=== PATIENT | female | born 1945 | race African-American/Black ===

== ENCOUNTER 2016-09-15 07:12 | Emergency (ER) | payer MEDICARE, OTHER ==
--- NOTE | 2016-09-15 07:41 | ER Document Report ---
ED General - General Chief Complaint: Facial Swelling Stated Complaint: FACIAL SWELLING Time seen by provider: 07:41 Mode of Arrival: Ambulatory Information source: Patient Notes: 71 yo female awoke this am with some itching and swelling to left half of lower and upper lip and into the cheek. Wears dentures. No gum pain. No fever or chills. Takes lisinopril for 10 years and an experimental GI drug for IBS since December. (dr. solitario) TRAVEL OUTSIDE OF THE [place] IN LAST 30 DAYS: No - Related Data Allergies/Adverse Reactions: Penicillins Allergy (Verified 09/15/16 07:16) Sulfa (Sulfonamide Antibiotics) Allergy (Verified 09/15/16 07:16) Past Medical History - General Information source: Patient - Social History Smoking Status: Never Smoker Chew tobacco use (# tins/day): No Frequency of alcohol use: Occasional Drug Abuse: None Family History: DM, Hypertension Patient has suicidal ideation: No Patient has homicidal ideation: No - Past Medical History Cardiac Medical History: Reports: Hx Hypertension GI Medical History: Reports: Hx Diverticulitis Musculoskeltal Medical History: Reports Hx Arthritis Past Surgical History: Reports: Hx Appendectomy - "possibly", Hx Breast Surgery - bilat biopsy, Hx Hysterectomy, Hx Orthopedic Surgery - R knee, right ankle - Immunizations Immunizations up to date: Yes Hx Diphtheria, Pertussis, Tetanus Vaccination: Yes Hx Pneumococcal Vaccination: 08/29/00 Review of Systems - Review of Systems Constitutional: No symptoms reported EENT: See HPI Cardiovascular: No symptoms reported Respiratory: No symptoms reported Gastrointestinal: No symptoms reported Genitourinary: No symptoms reported Female Genitourinary: No symptoms reported Musculoskeletal: No symptoms reported Skin: No symptoms reported Hematologic/Lymphatic: No symptoms reported Neurological/Psychological: No symptoms reported Physical Exam - Vital signs Vitals: Temp Pulse Resp BP Pulse Ox 97.9 F 84 17 166/79 H 97 09/15/16 07:17 09/15/16 07:17 09/15/16 07:17 09/15/16 07:17 09/15/16 07:17 Interpretation: Normal - General General appearance: Appears well, Alert In distress: None - HEENT Head: Normocephalic, Atraumatic Eyes: Normal Conjunctiva: Normal Pupils: PERRL Mouth/Lips: Angioedema - left 1/2 of upper and lower lips Mucous membranes: Normal Pharynx: Normal, Other - airway wide open. No: Uvular edema - Respiratory Respiratory status: No respiratory distress Chest status: Nontender Breath sounds: Normal Chest palpation: Normal - Cardiovascular Rhythm: Regular Heart sounds: Normal auscultation Murmur: No - Abdominal Inspection: Normal Distension: No distension Bowel sounds: Normal Tenderness: Nontender Organomegaly: No organomegaly - Back Back: Normal, Nontender - Extremities General upper extremity: Normal inspection, Nontender, Normal color, Normal ROM , Normal temperature General lower extremity: Normal inspection, Nontender, Normal color, Normal ROM , Normal temperature, Normal weight bearing. No: Dena's sign - Neurological Neuro grossly intact: Yes Cognition: Normal Orientation: AAOx4 [place] Coma Scale Eye Opening: Spontaneous [place] Coma Scale Verbal: Oriented Mery Coma Scale Motor: Obeys Commands [place] Coma Scale Total: 15 Speech: Normal Motor strength normal: LUE, RUE, LLE, RLE Sensory: Normal - Psychological Associated symptoms: Normal affect, Normal mood - Skin Skin Temperature: Warm Skin Moisture: Dry Skin Color: Normal Course - Re-evaluation Re-evalutation: 09/15/16 07:[address] Robison per [facility] guidelines re: tx of this pt. Watch the pt. until 9 am, if it is not worse, can go home and since has to drive take benadryl at home. 09/15/16 09:10 no increase in swelling. I consulted with dr. solitario about this as reqeusted by the pt because she is taking experimental IBS med. He states it's OK for her to take benadryl, pepcid and prednisone. 09/15/16 09:56 Stable no increase in swelling and will be typing the patient's discharge and discussed this disposition with Dr. Gao 09/15/16 10:03 I advised patient that she needs to see Dr. Solitario and Dr. Canas today to get started on a different blood pressure medication. Also to take the Benadryl when she gets home. - Vital Signs Vital signs: Temp Pulse Resp BP Pulse Ox 97.9 F 74 16 143/89 H 99 09/15/16 10:10 09/15/16 10:10 09/15/16 10:10 09/15/16 10:10 09/15/16 10:10 Discharge - Discharge Clinical Impression: left side lip andioedema Condition: Good Disposition: HOME, SELF-CARE Instructions: Angioedema ([facility]), Use of Diphenhydramine, Acid-Suppressing Medication ([facility]), Steroid Medication Additional Instructions: Stop by Dr. Solitario office to evaluate you stop the lisinopril Take the new medication prescribed. over the counter Benadryl See Dr. Canas today related to the lisinopril that you take for blood pressure which can cause angioedema. He may have to start you on another medication Return to the ER if any increased swelling, trouble breathing, wheezing, or concerns Prescriptions: Famotidine [Pepcid 20 mg Tablet] 20 mg PO BID #14 tablet Prednisone [Deltasone 10 mg Tablet] 10 mg PO ASDIR PRN #21 tablet PRN Reason: Referrals: JAMEE CANAS MD [Primary Care Provider] - 09/15/16 EDE SOLITARIO MD [ACTIVE STAFF] - 09/15/16
[2016-09-15] MEDS ORDERED: PREDNISONE 20 MG TABLET PO ONE (07:49)
[2016-09-15] MEDS ORDERED: FAMOTIDINE 20 MG TABLET PO ONE (07:49)
[2016-09-15 10:12] VITALS: BP 143/89
== END 2016-09-15 10:10 | disposition home or self-care (01) ==
LOC: ER 07:12
DX: T78.3XXA Angioneurotic edema, initial encounter (principal); X58.XXXA Exposure to other specified factors, initial encounter; K58.9 Irritable bowel syndrome, unspecified; I10 Essential (primary) hypertension; Z79.899 Other long term (current) drug therapy; Z88.0 Allergy status to penicillin; Z88.2 Allergy status to sulfonamides
CPT/HCPCS: 99283; A9270 ×2; J7512

== ENCOUNTER → 2016-12-16 | Outpatient (CLI) | payer MEDICARE, OTHER | LOC: RAD 07:51 | PROVIDERS: ATTEND Internal Medicine Gastroenterology | DX: R10.13 Epigastric pain (principal) | CPT/HCPCS: 76700 ==

== ENCOUNTER → 2017-04-14 | Outpatient (CLI) | payer MEDICARE, OTHER ==
--- NOTE | 2017-04-15 17:44 | WOMENS IMAGING REPORT ---
EXAM DESCRIPTION: BONE DENSITY HIP/SPINE COMPLETED DATE/TIME: 04/14/2017 10:26 am REASON FOR STUDY: GENERAL ADULT MEDICAL EXAM WITHOUT ABNORMAL FINDINGS; Z78.0 Z78.0 ASYMPTOMATIC ME NOPAUSAL STATE COMPARISON: 2004, 2011 TECHNIQUE: Dual-Energy X-ray Absorptiometry (DEXA) of the AP Spine and Hip. LIMITATIONS: None. FINDINGS: LUMBAR SPINE: The bone mineral density (BMD) measured from L1-L4 in the AP projection correlates with a T-score of -1.1, which is osteopenic as defined by the World Health Organization. This is stable compared to and 2011 HIP: The bone mineral density (BMD) measured in the left total hip correlates with a T-score of -2.0, whic h is osteopenic as defined by the World Health Organization. This represents a 5% decline in bone de nsity since 2011 IMPRESSION: 1. LUMBAR SPINE: Osteopenic 2. HIP: Osteopenic COMMENT: The World Health Organization defines low BMD as follows: T-score: Normal: Greater than -1.0 Osteopenia: Between -1.0 and -2.5 Osteoporosis: Less than -2.5 without fractures Established osteoporosis: Less than -2.5 with fractures In general, you may wish to consider: Diagnosis Treatment Follow-up DEXA Normal BMD Prevention 2-3 years Osteopenia Prevention/Therapy 1-2 years Osteoporosis Therapy Yearly TECHNICAL DOCUMENTATION: JOB ID: [id number] [employer]- All Rights Reserved
== END ==
LOC: WI 10:24
PROVIDERS: ATTEND Internal Medicine
DX: Z78.0 Asymptomatic menopausal state (principal)
CPT/HCPCS: 77080

== ENCOUNTER 2017-07-10 00:23 | Emergency (ER) | payer MEDICARE, OTHER ==
[2017-07-10 00:31] VITALS: BP 122/82
--- NOTE | 2017-07-10 01:30 | ER Document Report ---
ED General - General Chief Complaint: Facial Swelling Stated Complaint: FACE SWELLING Time Seen by Provider: 07/10/17 01:18 Notes: Patient is a 72-year-old female who presents with complaint of facial swelling. She says that she was started on a new blood pressure medication, hydralazine. She is was prescribed to her by primary care doctor on but she did not take the first dose until Tuesday. She says she took 1 dose Tuesday and 1 dose Tuesday. She says she is since started developing some facial swelling of her left. She says she feels tightness and swelling below her left eye anterior cheek and down into her neck. No chest pain. No shortness of breath. She says she had the exact same symptoms when she took lisinopril and that is why the lisinopril was started. She denies any tongue swelling. No difficulty breathing. No difficulty swallowing. No difficulty with facial movements. No other complaints at this time. TRAVEL OUTSIDE OF THE [place] IN LAST 30 DAYS: No - Related Data Allergies/Adverse Reactions: Penicillins Allergy (Verified 07/10/17 00:31) Sulfa (Sulfonamide Antibiotics) Allergy (Verified 07/10/17 00:31) Past Medical History - Social History Smoking Status: Never Smoker Frequency of alcohol use: None Drug Abuse: None Family History: DM, Hypertension Patient has suicidal ideation: No Patient has homicidal ideation: No - Past Medical History Cardiac Medical History: Reports: Hx Hypertension Renal/ Medical History: Denies: Hx Peritoneal Dialysis GI Medical History: Reports: Hx Diverticulitis Musculoskeltal Medical History: Reports Hx Arthritis Past Surgical History: Reports: Hx Appendectomy - "possibly", Hx Breast Surgery - bilat biopsy, Hx Hysterectomy, Hx Orthopedic Surgery - R knee, right ankle - Immunizations Immunizations up to date: Yes Hx Diphtheria, Pertussis, Tetanus Vaccination: Yes Hx Pneumococcal Vaccination: 08/29/00 Review of Systems - Review of Systems Notes: My Normal Review Basic REVIEW OF SYSTEMS: CONSTITUTIONAL : Denies fever, chills, or sweats. Denies recent illness. EENT: Facial swelling CARDIOVASCULAR: Denies chest pain. RESPIRATORY: Denies cough, cold, or chest congestion. Denies shortness of breath, difficulty breathing, or wheezing. MUSCULOSKELETAL: Denies neck or back pain or joint pain or swelling. SKIN: Denies rash or skin lesions. NEUROLOGICAL: Denies altered mental status or loss of consciousness. Denies headache. Denies weakness or paralysis or loss of use of either side. Denies problems with gait or speech. Denies sensory or motor loss. ALL OTHER SYSTEMS REVIEWED AND NEGATIVE. Physical Exam - Vital signs Vitals: Temp Pulse Resp BP Pulse Ox 98.6 F 74 14 122/82 98 07/10/17 00:31 07/10/17 00:31 07/10/17 00:31 07/10/17 00:31 07/10/17 00:31 - Notes Notes: General Appearance: Well nourished, alert, cooperative, no acute distress, no obvious discomfort. Well appearing. Vitals: reviewed, See vital signs table. Head: Patient has very minimally visible swelling along the left cheek left side of face. Redness. No warmth to palpation. Mild soreness to palpation of this area. Eyes: PERRL, EOMI, Conjuctiva clear Mouth: No decreasd moisture Throat: No tonsillar inflammation, No airway obstruction, No lymphadenopathy Extremities: strength 5/5 in all extremities, good pulses in all extremities, no swelling or tenderness in the extremities, no edema. Skin: warm, dry, appropriate color, no rash Neuro: speech clear, oriented x 3, normal affect, responds appropriately to questions. Renal nerves II through XII are intact. Distal sensation intact. Normal gait. Normal strength in all 4 extremities. Course - Re-evaluation Re-evalutation: 07/10/17 01:35 What swelling the patient has left-sided face is very minimal. I do look very hard to be able to notice it. This time the patient does not need prednisone. I told her she can take Benadryl for any itching or sensation of swelling. She has no signs of airway compromise. She looks well. I encourage her to hold off on the Hydralazine until she follows up with Dr. Damon. I encouraged her follow-up Dr. Damon on Tuesday. Encouraged her return to ER if she has difficulty breathing, difficulty swallowing, increased facial swelling, or she feels unwell. Patient agrees with plan will be discharged home. Dictation of this chart was performed using voice recognition software; therefore, there may be some unintended grammatical errors. - Vital Signs Vital signs: Temp Pulse Resp BP Pulse Ox 98.6 F 74 14 122/82 98 07/10/17 00:31 07/10/17 00:31 07/10/17 00:31 07/10/17 00:31 07/10/17 00:31 Discharge - Discharge Clinical Impression: Sensation of pressure in face Condition: Good Disposition: HOME, SELF-CARE Additional Instructions: Please take 25 mg Benadryl every 6 hours as needed for swelling or pressure in the face. His hold the hydralazine medication. Please follow-up with Dr. Damon on Tuesday morning for reevaluation and possible prescription for different kind of blood pressure medication if needed. These return to ER immediately if you have visual worsening swelling, difficulty breathing, difficulty swallowing, tongue swelling, weakness in the face, severe headache, or feel unwell.
== END 2017-07-10 01:38 | disposition home or self-care (01) ==
LOC: ER 00:23
DX: R22.0 Localized swelling, mass and lump, head (principal); I10 Essential (primary) hypertension; Z90.710 Acquired absence of both cervix and uterus; Z88.0 Allergy status to penicillin; Z88.2 Allergy status to sulfonamides
CPT/HCPCS: 99283

== ENCOUNTER → 2017-08-16 | Outpatient (CLI) | payer MEDICARE, OTHER ==
--- NOTE | 2017-08-16 11:16 | WOMENS IMAGING REPORT ---
EXAM DESCRIPTION: BILAT SCREENING MAMMO W/CAD COMPLETED DATE/TIME: 08/16/2017 10:55 am REASON FOR STUDY: SCREENING MAMMO Z12.31 ENCNTR SCREEN MAMMOGRAM FOR MALIGNANT NEOPLASM OF YAKELIN COMPARISON: 2011 to 2014 TECHNIQUE: Standard craniocaudal and mediolateral oblique views of each breast recorded using digita l acquisition. LIMITATIONS: None. FINDINGS: RIGHT BREAST MASSES: No suspicious masses. CALCIFICATIONS: No new or suspicious calcifications. ARCHITECTURAL DISTORTION: None. DEVELOPING DENSITY: Developing density in the central breast 5 cm from nipple seen only on the CC vie w ASYMMETRY: None noted. OTHER: No other significant findings. LEFT BREAST MASSES: No suspicious masses. CALCIFICATIONS: No new or suspicious calcifications. ARCHITECTURAL DISTORTION: None. DEVELOPING DENSITY: None. ASYMMETRY: None noted. OTHER: No other significant findings. Read with the assistance of CAD. .[facility] - R2 Cenova Version 1.3 .[facility] Imaging - R2 Cenova Version 1.3 .[facility] Imaging - R2 Cenova Version 2.4 .[facility] [place] R2 Cenova Version 2.4 .[facility] - R2 Senior Scheduler Version 9.2 IMPRESSION: Developing density in the right breast BREAST DENSITY: b. There are scattered areas of fibroglandular density. BIRAD: 0 Incomplete: Needs Additional Imaging Evaluation and/or prior Mammograms for Comparison. RECOMMENDATION: RECOMMENDED FOLLOW-UP: Spot compression with ultrasound if indicated. The patient will be contacted for additional imaging. COMMENT: The patient has been notified of the results by letter per SA requirements. Additional no tification policies are in place for contacting patient with suspicious or incomplete findings. Quality ID #[id number]: The [employer] recommends an annual screening mammogram for women aged 40 years or over. This facility utilizes a reminder system to ensure that all patients receive reminder letters, and/or direct phone calls for appointments. This includes reminders for routine scr eening mammograms, diagnostic mammograms, or other Breast Imaging Interventions when appropriate. Th is patient will be placed in the appropriate reminder system. The [employer] (ACR) has developed recommendations for screening MRI of the breast s in certain patient populations, to be used in conjunction with mammography. Breast MRI surveillanc e may be appropriate for women with more than 20% lifetime risk of developing breast cancer as deter mined by genetic testing, significant family history of the disease, or history of mantle radiation f or Hodgkins Disease. ACR Practice Guidelines 2008. TECHNICAL DOCUMENTATION: FINDING NUMBER: (1) ASSESSMENT: (1) JOB ID: [id number] [employer].- All Rights Reserved
== END ==
LOC: WI 10:20
PROVIDERS: ATTEND Internal Medicine
DX: Z12.31 Encounter for screening mammogram for malignant neoplasm of breast (principal)
CPT/HCPCS: 77067; G0202

== ENCOUNTER → 2017-09-07 | Outpatient (CLI) | payer MEDICARE, OTHER ==
--- NOTE | 2017-09-07 13:42 | WOMENS IMAGING REPORT ---
EXAM DESCRIPTION: RIGHT DIAGNOSTIC MAMMO W/CAD; U/S BREAST UNILAT LIMITED COMPLETED DATE/TIME: 09/07/2017 10:58 am; 09/07/2017 1:29 pm REASON FOR STUDY: UNSPECIFIED LUMP; N63.41; MASS N63.41 UNSPECIFIED LUMP IN RIGHT BREAST, SUBAREOLA R COMPARISON: Multiple since 2008 TECHNIQUE: Cone compression craniocaudal and whole breast 90 mediolateral images of the breast suzanna rded with digital acquisition. Right breast ultrasound was also performed LIMITATIONS: None. FINDINGS: BREAST: Right MASSES: No suspicious masses. CALCIFICATIONS: No new or suspicious calcifications. ARCHITECTURAL DISTORTION: None. DEVELOPING DENSITY: None. ASYMMETRY: None noted. OTHER: No other significant findings. Read with the assistance of CAD. .[facility] - R2 Cenova Version 1.3 .[facility] Imaging - R2 Cenova Version 1.3 .[facility] Imaging - R2 Cenova Version 2.4 .[facility] - R2 Cenova Version 2.4 .[facility] - R2 Medical Device Sales Consultant Version 9.2 Right breast ultrasound: Ultrasound of the right breast 11 to 12 o'clock position was performed. No discrete cystic or solid lesions. No acoustic absorption. No focal findings. IMPRESSION: No mammographic or sonographic evidence for malignancy right breast BREAST DENSITY: b. There are scattered areas of fibroglandular density. BIRAD: 1 Negative. RECOMMENDATION: RECOMMENDED FOLLOW UP: Please continue yearly bilateral screening mammography in Jul. Please consider screening tomosynthesis SPECIFIC INTERVENTION/IMAGING/CONSULTATION RECOMMENDED:No additional intervention/ imaging/consultati on needed at this time. COMMUNICATION:Patient notified by letter COMMENT: The patient has been notified of the results by letter per SA requirements. Additional no tification policies are in place for contacting patient with suspicious or incomplete findings. Quality ID #[id number]: The [employer] recommends an annual screening mammogram for women aged 40 years or over. This facility utilizes a reminder system to ensure that all patients receive reminder letters, and/or direct phone calls for appointments. This includes reminders for routine scr eening mammograms, diagnostic mammograms, or other Breast Imaging Interventions when appropriate. Th is patient will be placed in the appropriate reminder system. The [employer] (ACR) has developed recommendations for screening MRI of the breast s in certain patient populations, to be used in conjunction with mammography. Breast MRI surveillanc e may be appropriate for women with more than 20% lifetime risk of developing breast cancer as deter mined by genetic testing, significant family history of the disease, or history of mantle radiation f or Hodgkins Disease. ACR Practice Guidelines 2008. TECHNICAL DOCUMENTATION: FINDING NUMBER: (1) ASSESSMENT: (1) JOB ID: [id number] [employer]- All Rights Reserved
--- NOTE | 2017-09-07 13:42 | WOMENS IMAGING REPORT ---
EXAM DESCRIPTION: RIGHT DIAGNOSTIC MAMMO W/CAD; U/S BREAST UNILAT LIMITED COMPLETED DATE/TIME: 09/07/2017 10:58 am; 09/07/2017 1:29 pm REASON FOR STUDY: UNSPECIFIED LUMP; N63.41; MASS N63.41 UNSPECIFIED LUMP IN RIGHT BREAST, SUBAREOLA R COMPARISON: Multiple since 2008 TECHNIQUE: Cone compression craniocaudal and whole breast 90 mediolateral images of the breast suzanna rded with digital acquisition. Right breast ultrasound was also performed LIMITATIONS: None. FINDINGS: BREAST: Right MASSES: No suspicious masses. CALCIFICATIONS: No new or suspicious calcifications. ARCHITECTURAL DISTORTION: None. DEVELOPING DENSITY: None. ASYMMETRY: None noted. OTHER: No other significant findings. Read with the assistance of CAD. .[facility] - R2 Cenova Version 1.3 .[facility] Imaging - R2 Cenova Version 1.3 .[facility] Imaging - R2 Cenova Version 2.4 .[facility] [place]2 Cenova Version 2.4 .[facility] - R2 Soap Inspector Version 9.2 Right breast ultrasound: Ultrasound of the right breast 11 to 12 o'clock position was performed. No discrete cystic or solid lesions. No acoustic absorption. No focal findings. IMPRESSION: No mammographic or sonographic evidence for malignancy right breast BREAST DENSITY: b. There are scattered areas of fibroglandular density. BIRAD: 1 Negative. RECOMMENDATION: RECOMMENDED FOLLOW UP: Please continue yearly bilateral screening mammography in Jul. Please consider screening tomosynthesis SPECIFIC INTERVENTION/IMAGING/CONSULTATION RECOMMENDED:No additional intervention/ imaging/consultati on needed at this time. COMMUNICATION:Patient notified by letter COMMENT: The patient has been notified of the results by letter per SA requirements. Additional no tification policies are in place for contacting patient with suspicious or incomplete findings. Quality ID #[id number]: The [employer] recommends an annual screening mammogram for women aged 40 years or over. This facility utilizes a reminder system to ensure that all patients receive reminder letters, and/or direct phone calls for appointments. This includes reminders for routine scr eening mammograms, diagnostic mammograms, or other Breast Imaging Interventions when appropriate. Th is patient will be placed in the appropriate reminder system. The [employer] (ACR) has developed recommendations for screening MRI of the breast s in certain patient populations, to be used in conjunction with mammography. Breast MRI surveillanc e may be appropriate for women with more than 20% lifetime risk of developing breast cancer as deter mined by genetic testing, significant family history of the disease, or history of mantle radiation f or Hodgkins Disease. ACR Practice Guidelines 2008. TECHNICAL DOCUMENTATION: FINDING NUMBER: (1) ASSESSMENT: (1) JOB ID: [id number] [employer]- All Rights Reserved
== END ==
LOC: WI 10:35
PROVIDERS: ATTEND Internal Medicine
DX: N63.41 Unspecified lump in right breast, subareolar (principal)
CPT/HCPCS: 76642

== ENCOUNTER 2018-03-30 09:37 | Emergency (ER) | payer MEDICARE ==
--- NOTE | 2018-03-30 09:56 | ER Document Report ---
ED Medical Screen (RME) - General Chief Complaint: Leg Swelling Stated Complaint: LEG/ANKLE PAIN Time Seen by Provider: 03/30/18 09:46 Mode of Arrival: Ambulatory Information source: Patient TRAVEL OUTSIDE OF THE [place] IN LAST 30 DAYS: No - HPI Patient complains to provider of: swelling and pain in both ankles Onset: Other - pt with c/o swelling and pain in both ankles, worse on the R - Related Data Allergies/Adverse Reactions: Penicillins Allergy (Verified 03/30/18 09:38) Sulfa (Sulfonamide Antibiotics) Allergy (Verified 03/30/18 09:38) hydrochlorothiazide Adverse Reaction (Verified 03/30/18 09:49) Pruritis Past Medical History - Social History Frequency of alcohol use: None Drug Abuse: None - Past Medical History Cardiac Medical History: Reports: Hx Hypertension Renal/ Medical History: Denies: Hx Peritoneal Dialysis GI Medical History: Reports: Hx Diverticulitis, Hx Gastroesophageal Reflux Disease Musculoskeltal Medical History: Reports Hx Arthritis Past Surgical History: Reports: Hx Appendectomy - "possibly", Hx Breast Surgery - bilat biopsy, Hx Hysterectomy, Hx Orthopedic Surgery - R knee, right ankle - Immunizations Immunizations up to date: Yes Hx Diphtheria, Pertussis, Tetanus Vaccination: Yes Physical Exam - Vital signs Vitals: Temp Pulse Resp BP Pulse Ox 98.2 F 66 16 169/96 H 97 03/30/18 09:42 03/30/18 09:42 03/30/18 09:42 03/30/18 09:42 03/30/18 09:42 Course - Vital Signs Vital signs: Temp Pulse Resp BP Pulse Ox 98.2 F 66 16 169/96 H 97 03/30/18 09:42 03/30/18 09:42 03/30/18 09:42 03/30/18 09:42 03/30/18 09:42 Doctor's Discharge - Discharge Referrals: JAMEE CANAS MD [Primary Care Provider] - Follow up as needed
[2018-03-30 10:52] LABS: ABSOLUTE EOSINOPHILS # (AUTO) 0.1 10^3/uL (0.0-0.6); ABSOLUTE LYMPHOCYTES (AUTO) 1.4 10^3/uL (0.5-4.7); ABSOLUTE MONOCYTES (AUTO) 0.4 10^3/uL (0.1-1.4); ABSOLUTE NEUT (AUTO) 4.3 10^3/uL (1.7-8.2); BASOPHILS % (AUTO) 0.5 % (0-2); EOSINOPHILS % (AUTO) 2.2 % (0-6); HEMATOCRIT 38.1 % (36.0-47.0); HEMOGLOBIN 12.3 g/dL (12.0-15.5); LYMPHOCYTES % (AUTO) 21.6 % (13-45); MEAN CORPUSCULAR HEMOGLOBIN 30.6 pg (27.0-33.4); MEAN CORPUSCULAR HGB CONC 32.4 g/dL (32.0-36.0); MEAN CORPUSCULAR VOLUME 95 fl (80-97); MONOCYTES % (AUTO) 7.1 % (3-13); PLATELET COUNT 321 10^3/uL (150-450); RED BLOOD COUNT 4.03 10^6/uL (3.72-5.28); RED CELL DISTRIBUTION WIDTH 13.9 % (11.5-14.0); SEGMENTED NEUTROPHILS % (AUTO) 68.6 % (42-78); TOTAL CELLS COUNTED % (AUTO) 100 %; WHITE BLOOD COUNT 6.3 10^3/uL (4.0-10.5)
[2018-03-30 11:09] LABS: ALANINE AMINOTRANSFERASE 20 U/L (9-52); ALBUMIN 4.1 g/dL (3.5-5.0); ALKALINE PHOSPHATASE 102 U/L (38-126); ANION GAP 10 (5-19); ASPARTATE AMINO TRANSFERASE 18 U/L (14-36); BILIRUBIN,DIRECT 0.2 mg/dL (0.0-0.4); BILIRUBIN,TOTAL 1.1 mg/dL (0.2-1.3); BLOOD UREA NITROGEN 20 mg/dL (7-20); CARBON DIOXIDE 30 mmol/L (22-30); CHLORIDE 109 mmol/L (98-107); GLUCOSE 99 mg/dL (75-110); POTASSIUM 3.9 mmol/L (3.6-5.0); SODIUM 148.7 mmol/L (137-145); TOTAL PROTEIN 7.7 g/dL (6.3-8.2)
--- NOTE | 2018-03-30 12:53 | ER Document Report ---
ED General - General Chief Complaint: Leg Swelling Stated Complaint: LEG/ANKLE PAIN Time Seen by Provider: 03/30/18 09:46 Mode of Arrival: Ambulatory TRAVEL OUTSIDE OF THE [place] IN LAST 30 DAYS: No - HPI Patient complains to provider of: Leg swelling bilaterally and pain behind the right knee Onset: Other - 72-year-old female has a history of edema in the bilateral lower extremities. It is intermittent and worse when she keeps her legs lower than her waist for extended period of time. She has been seen for this in the past and does wear compression stockings to help with it, she notes that the swelling seems to be worse than usual of late and has not been going away as readily, she had taken Lasix in the past but had stopped because it caused swelling elsewhere. She presented because she was having pain in her right lower extremity today associated with the swelling for which she has been seen in the past without any obvious cause being identified nothing seemed to help with it nothing seems to make it worse other than touching it. She denies any fevers or chills abdominal pain diarrhea constipation dysuria shortness of breath chest pain lightheadedness or other symptoms. - Related Data Allergies/Adverse Reactions: Penicillins Allergy (Verified 03/30/18 09:38) Sulfa (Sulfonamide Antibiotics) Allergy (Verified 03/30/18 09:38) hydrochlorothiazide Adverse Reaction (Verified 03/30/18 09:49) Pruritis Past Medical History - General Information source: Patient - Social History Smoking Status: Never Smoker Frequency of alcohol use: None Drug Abuse: None Family History: DM, Hypertension Patient has suicidal ideation: No Patient has homicidal ideation: No - Medical History Medical History: Other - History of edema bilaterally - Past Medical History Cardiac Medical History: Reports: Hx Hypertension Renal/ Medical History: Denies: Hx Peritoneal Dialysis GI Medical History: Reports: Hx Diverticulitis, Hx Gastroesophageal Reflux Disease Musculoskeletal Medical History: Reports Hx Arthritis Past Surgical History: Reports: Hx Appendectomy - "possibly", Hx Breast Surgery - bilat biopsy, Hx Hysterectomy, Hx Orthopedic Surgery - R knee, right ankle - Immunizations Immunizations up to date: Yes Hx Diphtheria, Pertussis, Tetanus Vaccination: Yes Hx Pneumococcal Vaccination: 08/29/00 Review of Systems - Review of Systems Musculoskeletal: Leg swelling -: Yes All other systems reviewed and negative Physical Exam - Vital signs Vitals: Temp Pulse Resp BP Pulse Ox 98.2 F 66 16 169/96 H 97 03/30/18 09:42 03/30/18 09:42 03/30/18 09:42 03/30/18 09:42 03/30/18 09:42 - General General appearance: Appears well - HEENT Head: Normocephalic Eyes: Normal - Respiratory Respiratory status: No respiratory distress Chest status: Nontender Breath sounds: Normal - Cardiovascular Rhythm: Regular Heart sounds: Normal auscultation Murmur: No - Abdominal Inspection: Normal Distension: No distension Bowel sounds: Normal - Back Back: Normal - Extremities General upper extremity: Normal inspection General lower extremity: Other - This patient has +2 pitting edema in the bilateral lower extremities from the level of the knee to the ankle without any obvious sloughing boli erythema or warmth There is a strong DP pulse bilaterally , there is warmth in the feet, there is brisk capillary refill in all 5 digits is normal sensation in the webspace the toes Normal range of motion of the ankles knees and hips - Neurological Neuro grossly intact: Yes Cognition: Normal Orientation: AAOx4 Mery Coma Scale Eye Opening: Spontaneous Mery Coma Scale Verbal: Oriented Course - Re-evaluation Re-evalutation: 03/30/18 16:23 72-year-old female presented for evaluation of bilateral swelling of lower extremities with pain in the right leg worse than usual, she does wear compression hose. She was evaluated through the pit, a order was placed for ultrasounds of the lower extremities. Basic labs were ordered as well. In addition I added on a proBNP for evaluation of potential underlying heart failure. Patient had a negative Doppler ultrasound of the bilateral lower extremities which did not demonstrate any obvious clot. She did have some pain in the right lower extremity associated with what appears to be a small knot there is no appreciable fluctuance or fluid collection there that is amenable to drainage. Given that this patient is swollen with edema that seems to be dependent had some concern for heart failure however her lungs are clear she did not exhibit other signs of heart failure at this time and her proBNP was negative. Spoke with patient at length about the risks and benefits of potentially adding a diuretic to her regimen, I deferred adding a diuretic at this time given her age and the potential to cause more harm. She is in agreement at this time, she will wear her compression stockings and try and sleep with her legs in a vertical position and she will also follow-up with her primary physician regards to possible adjustment of her blood pressure medications. Her blood pressure was slightly elevated prior to leaving the emergency department she was instructed to take her clonidine upon her departure. - Vital Signs Vital signs: Temp Pulse Resp BP Pulse Ox 97.2 F 82 16 170/77 H 99 03/30/18 13:26 03/30/18 13:26 03/30/18 13:26 03/30/18 13:26 03/30/18 13:26 - Laboratory Result Diagrams: 03/30/18 10:25 03/30/18 10:25 Laboratory results interpreted by me: 03/30/18 10:25 Sodium 148.7 H Chloride 109 H Est GFR (Non-Af Amer) 53 L Discharge - Discharge Clinical Impression: Edema Qualifiers: Edema type: unspecified Qualified Code(s): R60.9 - Edema, unspecified Leg pain Qualifiers: Laterality: bilateral Qualified Code(s): M79.604 - Pain in right leg Condition: Stable Disposition: HOME, SELF-CARE Instructions: Dependent Edema ([facility]) Additional Instructions: you were seen today in the emergency department for your leg swelling. You had an evaluation including blood tests as well as an ultrasound of the veins of your legs. There was no obvious abscess identified, no clots identified. The swelling in your legs is likely a result of edema which is a result of your legs being lower than your heart for any given period of time. you should try to sleep with your legs propped up and continue to use compression stockings. You need to apply topical cream to help with the pain in your legs as necessary. If you begin to have fevers or chills and may represent a change and possible infection and he should be seen by a doctor. you should see her primary care doctor this week for further investigation of a possible water pill. Prescriptions: Lidocaine HCl [Xylocaine 5% Ointment 35.44 gm] 35.44 applic TP BID #2 tube Forms: Elevated Blood Pressure
[2018-03-30 13:27] VITALS: BP 170/77
--- NOTE | 2018-03-30 15:50 | XCELERA REPORT ---
[address] [address] Lower Extremity Venous Evaluation Name: ARGENTINA LA Age: 72 yrs Gender: Female : 1945 Patient Status: Emergency Patient Location: ER Study Date: 03/30/2018 10:48 AM Procedure: Color flow and duplex imaging bilaterally of the veins of the lower extremities as well as the Common Femoral veins. Reason For Study: swelling and pain Ordering Physician: ISAAK PEREIRA Performed By: Yakelin La Right Sided Venous Evaluation Normal vessel filling wall to wall, compression and augmentation as well as Colour flow down to the infrageniculate veins. Left Sided Venous Evaluation Normal vessel filling wall to wall, compression and augmentation as well as Colour flow down to the infrageniculate veins. Interpretation Summary No duplex evidence of DVT or obstruction in the bilateral lower extremities. : ISAAK PEREIRA > Rhett Braden
== END 2018-03-30 13:27 | disposition home or self-care (01) ==
LOC: ER 09:37
DX: R60.0 Localized edema (principal); M79.604 Pain in right leg; I10 Essential (primary) hypertension; Z88.0 Allergy status to penicillin; Z88.2 Allergy status to sulfonamides
CPT/HCPCS: 36415; 80053; 83880; 85025; 93970; 99284

== ENCOUNTER → 2018-06-27 | Outpatient (CLI) | payer MEDICARE, OTHER ==
--- NOTE | 2018-06-27 15:55 | RADIOLOGY REPORT (SQ) ---
EXAM DESCRIPTION: VENOUS BILATERAL LOWER COMPLETED DATE/TIME: 06/27/2018 3:46 pm REASON FOR STUDY: LYMPHEDEMA I89.0 LYMPHEDEMA, NOT ELSEWHERE CLASSIFIED COMPARISON: None. TECHNIQUE: Dynamic and static cardenas scale and color images acquired of both lower extremity venous sy stems. Selected spectral images acquired with additional compression and augmentation maneuvers. Imag es stored on PACS. LIMITATIONS: None. FINDINGS: RIGHT LEG COMMON FEMORAL AND FEMORAL: Normal phasicity, compression and augmentation. No visualized echogenic m aterial on cardenas scale. No defects on color images. POPLITEAL: Normal compression and augmentation. No visualized echogenic material on cardenas scale. No de fects on color images. CALF VESSELS: Normal compression and augmentation. No visualized echogenic material on cardenas scale. No defects on color image. GSV AND SSV: Normal compression. No visualized echogenic material on cardenas scale. No defects on color images. ANY DEEP VENOUS INSUFFICIENCY: No. ANY EVIDENCE OF POPLITEAL CYST: No. OTHER: No other significant finding. LEFT LEG COMMON FEMORAL AND FEMORAL: Normal phasicity, compression and augmentation. No visualized echogenic m aterial on cardenas scale. No defects on color images. POPLITEAL: Normal compression and augmentation. No visualized echogenic material on cardenas scale. No de fects on color images. CALF VESSELS: Normal compression and augmentation. No visualized echogenic material on cardenas scale. No defects on color images. GSV AND SSV: Normal compression. No visualized echogenic material on cardenas scale. No defects on color images. ANY DEEP VENOUS INSUFFICIENCY: No. ANY EVIDENCE POPLITEAL CYST: No. OTHER: No other significant finding. IMPRESSION: NO EVIDENCE DVT OR SVT IN EITHER LEG. TECHNICAL DOCUMENTATION: JOB ID: [id number] [employer]- All Rights Reserved Reading location - IP/workstation name: [email or web address]
== END ==
LOC: SP 15:28
PROVIDERS: ATTEND Surgery
DX: I89.0 Lymphedema, not elsewhere classified (principal)
CPT/HCPCS: 93970

== ENCOUNTER → 2018-10-03 | Outpatient (CLI) | payer MEDICARE, OTHER | LOC: WI 10:29 | PROVIDERS: ATTEND Physician Assistant | DX: Z12.31 Encounter for screening mammogram for malignant neoplasm of breast (principal) | CPT/HCPCS: 77067 ==

== ENCOUNTER → 2018-10-31 | Outpatient (CLI) | payer MEDICARE, OTHER ==
--- NOTE | 2018-10-31 15:46 | WOMENS IMAGING REPORT ---
EXAM DESCRIPTION: LEFT DIAGNOSTIC MAMMO W/CAD COMPLETED DATE/TIME: 10/31/2018 10:58 am REASON FOR STUDY: R92.2 INCONCLUSIVE MAMMOGRAM R92.2 INCONCLUSIVE MAMMOGRAM COMPARISON: Multiple since 2008 TECHNIQUE: Cone compression craniocaudal and mediolateral oblique images of the breast recorded with digital acquisition. Left breast exaggerated craniocaudad and 90 mediolateral view LIMITATIONS: None. FINDINGS: BREAST LATERALITY: Left MASSES: No suspicious masses. CALCIFICATIONS: No new or suspicious calcifications. ARCHITECTURAL DISTORTION: None. DEVELOPING DENSITY: None. ASYMMETRY: None noted. OTHER: No other significant findings. Read with the assistance of CAD. .[facility] - R2 Cenova Version 1.3 .[facility] Imaging - R2 Cenova Version 2.1 .[facility] Imaging - R2 Cenova Version 2.4 .[facility] - R2 Cenova Version 2.4 .ON LICENSE OF [facility] - R2 Hat Presser Version 9.2 IMPRESSION: No mammographic evidence for malignancy left breast BREAST DENSITY: b. There are scattered areas of fibroglandular density. BIRAD: 1 Negative. RECOMMENDATION: RECOMMENDED FOLLOW UP: Please continue yearly bilateral screening in September 2019 SPECIFIC INTERVENTION/IMAGING/CONSULTATION RECOMMENDED:No additional intervention/ imaging/consultati on needed at this time. COMMUNICATION:The negative/benign results were communicated to the patient. COMMENT: The patient has been notified of the results by letter per [place] requirements. Additional no tification policies are in place for contacting patient with suspicious or incomplete findings. Quality ID #[id number]: The [employer] recommends an annual screening mammogram for women aged 40 years or over. This facility utilizes a reminder system to ensure that all patients receive reminder letters, and/or direct phone calls for appointments. This includes reminders for routine scr eening mammograms, diagnostic mammograms, or other Breast Imaging Interventions when appropriate. Th is patient will be placed in the appropriate reminder system. The [employer] (ACR) has developed recommendations for screening MRI of the breast s in certain patient populations, to be used in conjunction with mammography. Breast MRI surveillanc e may be appropriate for women with more than 20% lifetime risk of developing breast cancer as deter mined by genetic testing, significant family history of the disease, or history of mantle radiation f or Hodgkins Disease. ACR Practice Guidelines 2008. TECHNICAL DOCUMENTATION: FINDING NUMBER: (1) ASSESSMENT: (1) JOB ID: [id number] [employer]- All Rights Reserved Reading location - IP/workstation name: [email or web address]
== END ==
LOC: WI 10:41
PROVIDERS: ATTEND Physician Assistant
DX: R92.2 Inconclusive mammogram (principal)

== ENCOUNTER 2018-11-19 15:38 | Emergency (ER) | payer MEDICARE, OTHER ==
--- NOTE | 2018-11-19 17:04 | RADIOLOGY REPORT (SQ) ---
EXAM DESCRIPTION: SOFT TISSUE NECK COMPLETED DATE/TIME: 11/19/2018 4:56 pm REASON FOR STUDY: Fishbone in throat COMPARISON: None. NUMBER OF VIEWS: Two views. TECHNIQUE: AP and lateral radiographic image of the soft tissues of the neck. LIMITATIONS: None. FINDINGS: EPIGLOTTIS: Normal. Contour normal. Aryepiglottic folds normal. PREVERTEBRAL SOFT TISSUES: Normal. No soft tissue swelling. SUBGLOTTIC AREA: Normal. No narrowing. RETROPHARYNGEAL SPACE: Normal. No soft tissue masses. BONES: Degenerative changes. LUNG APICES: Normal. OTHER: No radiopaque foreign body. No other significant finding. Fishbone x-ray: Curvilinear radiodense structure having the appearance of the bony skeleton. IMPRESSION: NEGATIVE STUDY OF THE SOFT TISSUES OF THE NECK. No radio opaque foreign body. TECHNICAL DOCUMENTATION: JOB ID: [id number] [employer]- All Rights Reserved Reading location - IP/workstation name: [email or web address]
--- NOTE | 2018-11-19 17:27 | RADIOLOGY REPORT (SQ) ---
EXAM DESCRIPTION: SKULL 1-3 VIEWS COMPLETED DATE/TIME: 11/19/2018 5:19 pm REASON FOR STUDY: LOOKING FOR FISHBONE HIGHER IN JAW AREA; 2 VIEWS ONLY COMPARISON: None. NUMBER OF VIEWS: Two Views. TECHNIQUE: AP and lateral images. LIMITATIONS: None. FINDINGS: SKULL: Sutures are normal. No skull fractures. OTHER: No other significant finding. IMPRESSION: No foreign body. TECHNICAL DOCUMENTATION: JOB ID: [id number] [employer]- All Rights Reserved Reading location - IP/workstation name: [email or web address]
[2018-11-19] MEDS ORDERED: LIDOCAINE 2% VISCOUS SOLN 20 ML UDCUP PO ONE (17:30)
[2018-11-19] MEDS ORDERED: MAG HYDROX/AL HYDROX/SIMETH SUSP 30 ML UDCUP PO ONE (17:30)
--- NOTE | 2018-11-19 19:08 | RADIOLOGY REPORT (SQ) ---
EXAM DESCRIPTION: CT SOFT TISSUE NECK WITHOUT COMPLETED DATE/TIME: 11/19/2018 6:55 pm REASON FOR STUDY: Feels fishbone FB in throat COMPARISON: None. TECHNIQUE: Noncontrast scanning from skull base through lung apices with review of bone, soft tissue and lung windows. Reconstructed coronal and sagittal MPR images reviewed. All images stored on PAC S. All CT scanners at this facility use dose modulation, iterative reconstruction, and/or weight based d osing when appropriate to reduce radiation dose to as low as reasonably achievable (ALARA). [facility]: Dose Right [facility]: CareDose [facility]: Dose Right [facility]: Teradose 4D [facility]: Smart AlertEnterprise RADIATION DOSE: CT Rad equipment meets quality standard of care and radiation dose reduction techniq ues were employed. CTDIvol: 8.1 mGy. DLP: 228 mGy-cm. mGy. LIMITATIONS: None. FINDINGS: SKULL BASE: Intact. MAJOR SALIVARY GLANDS: No solid or cystic masses. No inflammatory changes. LYMPHADENOPATHY: No adenopathy. MUCOSAL MASSES OR ASYMMETRY: No mucosal masses or asymmetry. LARYNX/CORDS: No abnormal findings. LUNG APICES: Clear. BONES: Intact. THYROID: Normal size. No masses. PARANASAL SINUSES: Clear. OTHER: No other significant finding. IMPRESSION: NO SIGNIFICANT FINDING IN THE SOFT TISSUES OF THE NECK. TECHNICAL DOCUMENTATION: JOB ID: [id number] Quality ID # [id number]: Final reports with documentation of one or more dose reduction techniques (e.g., Au tomated exposure control, adjustment of the mA and/or kV according to patient size, use of iterative reconstruction technique) 2010 [email or web address]- All Rights Reserved Reading location - IP/workstation name: [email or web address]
[2018-11-19 19:55] VITALS: BP 163/70
--- NOTE | 2018-11-19 21:45 | ER Document Report ---
Entered by KIRK HASSAN SCRIBE 11/19/18 1626 Acting as scribe for:DONATO BRANCH MD ED Foreign Body - General Chief Complaint: Swallowed Foreign Body Stated Complaint: FOREIGN OBJECT IN THROAT Time Seen by Provider: 11/19/18 16:14 Primary Care Provider: DEMETRIUS SAINI PA-C [Primary Care Provider] - Follow up as needed Mode of Arrival: Ambulatory Information source: Law Enforcement Notes: Patient is a 73 year old female presenting to the emergency department complaining of throat pain. Patient states she was eating fish when she believes she swallowed a bone that became stuck in her upper throat just prior to arrival to the emergency department. TRAVEL OUTSIDE OF THE [place] IN LAST 30 DAYS: No - Related Data Allergies/Adverse Reactions: Penicillins Allergy (Verified 03/30/18 09:38) Sulfa (Sulfonamide Antibiotics) Allergy (Verified 03/30/18 09:38) hydrochlorothiazide Adverse Reaction (Verified 03/30/18 09:49) Pruritis Past Medical History - General Information source: Patient - Social History Smoking Status: Never Smoker Chew tobacco use (# tins/day): No Frequency of alcohol use: None Drug Abuse: None Family History: DM, Hypertension Patient has suicidal ideation: No Patient has homicidal ideation: No - Past Medical History Cardiac Medical History: Reports: Hx Hypertension GI Medical History: Reports: Hx Diverticulitis, Hx Gastroesophageal Reflux Disease Musculoskeletal Medical History: Reports Hx Arthritis Past Surgical History: Reports: Hx Appendectomy - "possibly", Hx Breast Surgery - bilat biopsy, Hx Hysterectomy, Hx Orthopedic Surgery - R knee, right ankle - Immunizations Immunizations up to date: Yes Hx Diphtheria, Pertussis, Tetanus Vaccination: Yes Hx Pneumococcal Vaccination: 08/29/00 Review of Systems - Review of Systems Constitutional: No symptoms reported EENT: See HPI Cardiovascular: No symptoms reported Respiratory: No symptoms reported Gastrointestinal: No symptoms reported Genitourinary: No symptoms reported Female Genitourinary: No symptoms reported Musculoskeletal: No symptoms reported Skin: No symptoms reported Hematologic/Lymphatic: No symptoms reported Neurological/Psychological: No symptoms reported -: Yes All other systems reviewed and negative Physical Exam - Vital signs Vitals: Temp Pulse Resp BP Pulse Ox 99.4 F 85 18 149/59 H 97 11/19/18 15:46 11/19/18 15:46 11/19/18 15:46 11/19/18 15:46 11/19/18 15:46 - Notes Notes: GENERAL: Alert, interacts well. No acute distress. HEAD: Normocephalic, atraumatic. EYES: Pupils equal, round, and reactive to light. Extraocular movements intact. ENT: Oral mucosa moist, tongue midline. Posterior oropharynx clear. NECK: Full range of motion. Supple. Trachea midline. LUNGS: Clear to auscultation bilaterally. No wheezing, rales, or rhonchi. No respiratory distress. HEART: Regular rate and rhythm. No murmurs, gallops, or rubs. EXTREMITIES: Moves all 4 extremities spontaneously. NEUROLOGICAL: Alert and oriented x3. Normal speech. PSYCH: Normal affect, normal mood. SKIN: Warm, dry, normal turgor. No rashes or lesions noted. Course - Re-evaluation Re-evalutation: 11/19/18 17:31 No foreign bodies are seen on soft tissue films of the neck. At this time the patient states it does not hurt when she swallows. She just feels the sensation and points to her left anterior lateral neck just below the thyroid cartilage region and draws a line across the midline to the other side and states it feels like it goes all the way across that area. 11/19/18 19:18 CT scan was done and that does not show foreign body. - Vital Signs Vital signs: Temp Pulse Resp BP Pulse Ox 99.4 F 85 18 149/59 H 97 11/19/18 15:46 11/19/18 15:46 11/19/18 15:46 11/19/18 15:46 11/19/18 15:46 - Diagnostic Test Radiology reviewed: Image reviewed, Reports reviewed - Soft tissue plane films of the neck do not show foreign body. Soft tissue CT scan of the neck does not show foreign body. Discharge - Discharge Clinical Impression: Sensation of foreign body in esophagus Condition: Stable Disposition: HOME, SELF-CARE Additional Instructions: You probably suffered a scratch to your esophagus when you swallowed a fishbone. X-rays and CT scan do not show a fish bone or other foreign body in your throat at this time. You should stay on a liquid type diet of non-irritating liquids for the next day. When you do eat, make sure it is something that is soft and use a lot of fluid to wash it down. Follow-up with your primary care provider if not improving over the next 1-2 days. RETURN TO THE EMERGENCY ROOM IF ANY NEW OR WORSENING SYMPTOMS. Referrals: DEMETRIUS SAINI PA-C [Primary Care Provider] - Follow up as needed I personally performed the services described in the documentation, reviewed and edited the documentation which was dictated to the scribe in my presence, and it accurately records my words and actions.
== END 2018-11-19 19:52 | disposition home or self-care (01) ==
LOC: ER 15:38
DX: R09.89 Other specified symptoms and signs involving the circulatory and respiratory systems (principal); R07.0 Pain in throat; I10 Essential (primary) hypertension
CPT/HCPCS: 99284; 70360; 70250; 70490; J3490

== ENCOUNTER → 2019-02-27 | Outpatient (CLI) | payer MEDICARE, OTHER ==
--- NOTE | 2019-02-28 08:16 | XCELERA REPORT ---
[address] [address] Lower Extremity Venous Evaluation Procedure: Color flow and duplex imaging bilaterally of the veins of the lower extremities as well as the Common Femoral veins. Right Sided Venous Evaluation Lucent,spaces in subcutaneous tissues of the leg, suggesting edema, noted. Normal vessel filling wall to wall, compression and augmentation as well as Colour flow down to the infrageniculate veins. Left Sided Venous Evaluation Normal vessel filling wall to wall, compression and augmentation as well as Colour flow down to the infrageniculate veins. Interpretation Summary No duplex evidence of DVT or obstruction in the bilateral lower extremities. Name: ARGENTINA TIMMONS Age: 73 yrs Gender: Female : 1945 Patient Status: Outpatient Patient Location: [facility] Study Date: 02/27/2019 02:18 PM Reason For Study: PAIN Ordering Physician: BOOGIE BRADEN Performed By: Olivia Shah : BOOGIE BRADEN > Boogie Braden
== END ==
LOC: RAD 13:25
PROVIDERS: ATTEND Surgery
DX: M79.604 Pain in right leg (principal); M79.605 Pain in left leg
CPT/HCPCS: 93970

== ENCOUNTER → 2019-03-26 | Outpatient (CLI) | payer MEDICARE ==
[2019-03-26 22:08] LABS: ABSOLUTE EOSINOPHILS # (AUTO) 0.1 10^3/uL (0.0-0.6); ABSOLUTE LYMPHOCYTES (AUTO) 1.8 10^3/uL (0.5-4.7); ABSOLUTE MONOCYTES (AUTO) 0.5 10^3/uL (0.1-1.4); ABSOLUTE NEUT (AUTO) 4.7 10^3/uL (1.7-8.2); BASOPHILS % (AUTO) 0.7 % (0-2); EOSINOPHILS % (AUTO) 1.8 % (0-6); HEMATOCRIT 38.1 % (36.0-47.0); HEMOGLOBIN 12.6 g/dL (12.0-15.5); LYMPHOCYTES % (AUTO) 25.3 % (13-45); MEAN CORPUSCULAR HEMOGLOBIN 31.1 pg (27.0-33.4); MEAN CORPUSCULAR VOLUME 94 fl (80-97); MONOCYTES % (AUTO) 6.7 % (3-13); PLATELET COUNT 301 10^3/uL (150-450); RED BLOOD COUNT 4.03 10^6/uL (3.72-5.28); RED CELL DISTRIBUTION WIDTH 12.5 % (11.5-14.0); SEGMENTED NEUTROPHILS % (AUTO) 65.5 % (42-78); TOTAL CELLS COUNTED % (AUTO) 100 %; WHITE BLOOD COUNT 7.1 10^3/uL (4.0-10.5)
[2019-03-26 22:15] LABS: ALANINE AMINOTRANSFERASE 13 U/L (9-52); ALBUMIN 4.2 g/dL (3.5-5.0); ALKALINE PHOSPHATASE 92 U/L (38-126); ANION GAP 6 (5-19); ASPARTATE AMINO TRANSFERASE 24 U/L (14-36); BILIRUBIN,DIRECT 0.3 mg/dL (0.0-0.4); BILIRUBIN,TOTAL 1.6 mg/dL (0.2-1.3); BLOOD UREA NITROGEN 21 mg/dL (7-20); CARBON DIOXIDE 33 mmol/L (22-30); CHLORIDE 103 mmol/L (98-107); GLUCOSE 70 mg/dL (75-110); POTASSIUM 3.3 mmol/L (3.6-5.0); TOTAL PROTEIN 7.4 g/dL (6.3-8.2)
== END ==
LOC: LAB 21:43
PROVIDERS: ATTEND Internal Medicine Gastroenterology
DX: R10.84 Generalized abdominal pain (principal)
CPT/HCPCS: 36415; 80048; 80076; 83690; 85025

== ENCOUNTER 2019-08-05 02:52 | Emergency (ER) | payer MEDICARE, OTHER ==
[2019-08-05 03:30] LABS: ABSOLUTE EOSINOPHILS # (AUTO) 0.2 10^3/uL (0.0-0.6); ABSOLUTE LYMPHOCYTES (AUTO) 1.4 10^3/uL (0.5-4.7); ABSOLUTE MONOCYTES (AUTO) 0.5 10^3/uL (0.1-1.4); ABSOLUTE NEUT (AUTO) 4.6 10^3/uL (1.7-8.2); BASOPHILS % (AUTO) 0.4 % (0-2); EOSINOPHILS % (AUTO) 2.5 % (0-6); HEMOGLOBIN 12.7 g/dL (12.0-15.5); LYMPHOCYTES % (AUTO) 20.6 % (13-45); MEAN CORPUSCULAR HEMOGLOBIN 32.1 pg (27.0-33.4); MEAN CORPUSCULAR HGB CONC 34.3 g/dL (32.0-36.0); MEAN CORPUSCULAR VOLUME 94 fl (80-97); MONOCYTES % (AUTO) 7.3 % (3-13); PLATELET COUNT 300 10^3/uL (150-450); RED BLOOD COUNT 3.95 10^6/uL (3.72-5.28); RED CELL DISTRIBUTION WIDTH 12.3 % (11.5-14.0); SEGMENTED NEUTROPHILS % (AUTO) 69.2 % (42-78); TOTAL CELLS COUNTED % (AUTO) 100 %; WHITE BLOOD COUNT 6.6 10^3/uL (4.0-10.5)
[2019-08-05 04:02] LABS: ALBUMIN 4.1 g/dL (3.5-5.0); ALKALINE PHOSPHATASE 96 U/L (38-126); ANION GAP 7 (5-19); ASPARTATE AMINO TRANSFERASE 23 U/L (14-36); BILIRUBIN,DIRECT 0.2 mg/dL (0.0-0.4); BILIRUBIN,TOTAL 1.9 mg/dL (0.2-1.3); BLOOD UREA NITROGEN 17 mg/dL (7-20); CARBON DIOXIDE 34 mmol/L (22-30); CHLORIDE 103 mmol/L (98-107); GLUCOSE 122 mg/dL (75-110); POTASSIUM 3.1 mmol/L (3.6-5.0); TOTAL PROTEIN 7.7 g/dL (6.3-8.2)
[2019-08-05] MEDS ORDERED: ONDANSETRON HCL INJ/PF 4 MG/2 ML SDV IV ONE (04:19)
--- NOTE | 2019-08-05 04:21 | ER Document Report ---
ED Medical Screen (RME) - General Chief Complaint: Abdominal Pain Stated Complaint: ABDOMINAL PAIN Time Seen by Provider: 08/05/19 04:15 Primary Care Provider: EDE SOLITARIO MD [Primary Care Provider] - Follow up as needed Notes: 74-year-old female with chief complaint of abdominal pain. She states she has had abdominal pain intermittently for some time with intermittent constipation, however tonight pain became much more noticeable, sharp, and is mainly on the right side. She has had some nausea but denies vomiting. Last bowel movement was earlier today and firm. She denies fever. She denies any other complaints. Only abdominal surgery reported is total hysterectomy, reports history of hypertension, denies medical history otherwise. TRAVEL OUTSIDE OF THE [place] IN LAST 30 DAYS: No - Related Data Allergies/Adverse Reactions: atenolol Allergy (Verified 08/05/19 03:53) lisinopril Allergy (Verified 08/05/19 03:53) Penicillins Allergy (Verified 03/30/18 09:38) Sulfa (Sulfonamide Antibiotics) Allergy (Verified 03/30/18 09:38) Home Medications: HCTZ, tylenol Past Medical History - Social History Frequency of alcohol use: None Drug Abuse: None - Past Medical History Cardiac Medical History: Reports: Hx Hypertension Renal/ Medical History: Denies: Hx Peritoneal Dialysis GI Medical History: Reports: Hx Diverticulitis, Hx Gastroesophageal Reflux Disease Musculoskeltal Medical History: Reports Hx Arthritis Past Surgical History: Reports: Hx Appendectomy - "possibly", Hx Breast Surgery - bilat biopsy, Hx Hysterectomy, Hx Orthopedic Surgery - R knee, right ankle - Immunizations Immunizations up to date: Yes Hx Diphtheria, Pertussis, Tetanus Vaccination: Yes Physical Exam - Vital signs Vitals: Temp Pulse Resp BP Pulse Ox 97.6 F 80 16 159/68 H 98 08/05/19 02:56 08/05/19 02:56 08/05/19 02:56 08/05/19 02:56 08/05/19 02:56 - Abdominal Tenderness: Tender - tender with wincing in the right mid to lower abdomen Course - Re-evaluation Re-evalutation: I have greeted and performed a rapid initial assessment of this patient. A comprehensive ED assessment and evaluation of the patient, analysis of test re sults and completion of the medical decision making process will be conducted by additional ED providers. - Vital Signs Vital signs: Temp Pulse Resp BP Pulse Ox 97.6 F 80 16 159/68 H 98 08/05/19 02:58 08/05/19 02:56 08/05/19 02:58 08/05/19 02:56 08/05/19 02:58 - Laboratory Result Diagrams: 08/05/19 03:10 08/05/19 03:10 Laboratory results interpreted by me: 08/05/19 03:10 Potassium 3.1 L Carbon Dioxide 34 H Est GFR (MDRD) Non-Af 55 L Glucose 122 H Total Bilirubin 1.9 H Doctor's Discharge - Discharge Referrals: EDE SOLITARIO MD [Primary Care Provider] - Follow up as needed
--- NOTE | 2019-08-05 06:56 | ER Document Report ---
ED General - General Chief Complaint: Abdominal Pain Stated Complaint: ABDOMINAL PAIN Time Seen by Provider: 08/05/19 04:15 Primary Care Provider: EDE SOLITARIO MD [Primary Care Provider] - Follow up as needed TRAVEL OUTSIDE OF THE [place] IN LAST 30 DAYS: No - HPI Notes: 74-year-old female history of remote htn on HCTZ, GERD, remote diverticulotis; surg hx of PAUL +/- (she can't remember) appendectomy, presents today with worsening frequency and intensity of her chronic abdominal pain. she says it seems more towards the bottom of her abdomen but is hard to say it's in a certai n location. she denies worsening w/ eating, and hasn't had decline in po intake. denies any n/v. deneis any flank/back pain. no VB, or other vaginal/pelvic sx. she noticed this inc in her pain and difference she says in the last few days intermittently; seemed worse particularly last night. her last bowel movement was yesterday and she thinks she has had more constipation lately, w/ her stools being like small hard rocks with soem straining, though denies hematochezia/melena, brbpr. she denies (near) syncope, falls trauma. no f/c/s. denies urinary sx says she has felt stressed since her son has been back and forth to ED w/ dx of bronchitis, pna, now hospitalized after becoming very short of breath. she feels much better now that he's actually admitted in the hospital. denies any exertional sx, palpitations, brooks, vision change. she also reports sore throat w/o other URI/resp sx or viral syndrome - Related Data Allergies/Adverse Reactions: atenolol Allergy (Verified 08/05/19 03:53) lisinopril Allergy (Verified 08/05/19 03:53) Penicillins Allergy (Verified 03/30/18 09:38) Sulfa (Sulfonamide Antibiotics) Allergy (Verified 03/30/18 09:38) Home Medications: HCTZ, tylenol Past Medical History - Social History Smoking Status: Never Smoker Frequency of alcohol use: None Drug Abuse: None Family History: Reviewed & Not Pertinent, DM, Hypertension Patient has suicidal ideation: No Patient has homicidal ideation: No - Past Medical History Cardiac Medical History: Reports: Hx Hypertension Renal/ Medical History: Denies: Hx Peritoneal Dialysis GI Medical History: Reports: Hx Diverticulitis, Hx Gastroesophageal Reflux Disease Musculoskeletal Medical History: Reports Hx Arthritis Past Surgical History: Reports: Hx Appendectomy - "possibly", Hx Breast Surgery - bilat biopsy, Hx Hysterectomy, Hx Orthopedic Surgery - R knee, right ankle - Immunizations Immunizations up to date: Yes Hx Diphtheria, Pertussis, Tetanus Vaccination: Yes Hx Pneumococcal Vaccination: 08/29/00 Review of Systems - Review of Systems Constitutional: See HPI EENT: No symptoms reported - no ther symptoms reported, See HPI Cardiovascular: No symptoms reported Respiratory: No symptoms reported Gastrointestinal: See HPI Genitourinary: No symptoms reported Female Genitourinary: No symptoms reported Musculoskeletal: No symptoms reported Skin: No symptoms reported Hematologic/Lymphatic: No symptoms reported Neurological/Psychological: No symptoms reported Physical Exam - Vital signs Vitals: Temp Pulse Resp BP Pulse Ox 97.6 F 80 16 159/68 H 98 08/05/19 02:56 08/05/19 02:56 08/05/19 02:56 08/05/19 02:56 08/05/19 02:56 Interpretation: Normal - General General appearance: Appears well, Alert In distress: None - HEENT Head: Normocephalic, Atraumatic Eyes: Normal. No: Pale conjunctiva, Scleral icterus Conjunctiva: Normal Extraocular movements intact: Yes Pupils: PERRL Mucous membranes: Normal Pharynx: Erythema - mild erythema of posterior pharynx. no uvular edema. no exudarte or hypertrophy or lesions. no stridor. no other swelling. Neck: Normal, Supple. No: Neck mass, Subcutaneous emphysema, Thyroid nodule, Thyromegally - Respiratory Respiratory status: No respiratory distress. No: Respiratory distress, Cyanosis, Depressed respirations, Retractions, Tachypnea Chest status: Nontender. No: Ecchymosis, No pleuritic chest pain, Pain on movement, Pain with cough, Pain with deep breathing, Accessory muscle use, Prolonged expirations Breath sounds: Normal. No: Decreased air movement, Nonproductive cough, Productive cough, Rales, Rhonchi, Stridor, Wheezing Chest palpation: Normal - Cardiovascular Rhythm: Regular Heart sounds: Normal auscultation Murmur: No Pulses: Normal: Radial - Abdominal Inspection: Normal. No: Wounds, Obese Distension: No distension Bowel sounds: Normal Tenderness: Nontender - examined abdomen serially while in ED. remained very soft w/ benign abd no rebound guarding. no ttp to deep palpation in all quadrants no hernias (fem, umbilical or other abd wall), Organomegaly: No organomegaly - Rectal Tenderness: No Stool: Heme negative Hemorrhoids: External - no thrombosis nontender. brown soft stool per digital exam is (-) on occult test. - Back Back: Normal, Nontender. No: Deformity/step-off, CVA tenderness, Vertebra tenderness, Scars, Scoliosis, Wounds - Extremities General upper extremity: Normal inspection, Nontender, Normal color, Normal ROM, Normal temperature General lower extremity: Normal inspection, Nontender, Normal color, Normal ROM, Normal temperature, Normal weight bearing. No: Dena's sign - Neurological Neuro grossly intact: Yes Cognition: Normal Orientation: AAOx4 [place] Coma Scale Eye Opening: Spontaneous Mery Coma Scale Verbal: Oriented Mery Coma Scale Motor: Obeys Commands [place] Coma Scale Total: 15 Speech: Normal Motor strength normal: LUE, RUE, LLE, RLE Sensory: Normal - Psychological Associated symptoms: Normal affect, Normal mood - Skin Skin Temperature: Warm Skin Moisture: Dry Skin Color: Normal Course - Re-evaluation Re-evalutation: 08/05/19 09:37 Abdomen/Pelvis CT 08/05/19 04:18 IMPRESSION: 1. Mild ileitis and mural fat replacement of the terminal ileum involves a chronic component. Differential etiologies include infectious, inflammatory, and neoplastic processes. 2. Mild chronic irregularity of the L4-L5 endplates with vacuum disc suggestive of advanced degenerative disc disease. Differential diagnosis includes discitis. 08/05/19 11:23 Patient's abdomen exam remained very soft nontender in all quadrants on deep palpation. She continued to appear nontoxic well vital signs within normal limits. We discussed that this could be secondary to some return of polyps in the ileum as she had had removed in March and multiple times of the last few years. We discussed warning signs that I think this is self-limited and her sore throat is also a self-limited viral infection, but to watch for any fevers chills sweats worsening persistent abdominal pain vomiting inability to hold any food down otherwise want her to follow-up with her primary care doctor and stay hydrated continue to eat and drink well. Her potassium was very slightly low today so we discussed eating fruits and vegetables to continue to keep her potassium levels okay. Also will prescribe a single dose of daily MiraLAX to ensure she has regular bowel movements since she did have some moderate stool burden on CT scan adn reported patterns of constipation for her. . 08/05/19 21:16 - Vital Signs Vital signs: Temp Pulse Resp BP Pulse Ox 98.5 F 71 14 123/60 97 08/05/19 12:24 08/05/19 12:24 08/05/19 12:24 08/05/19 12:24 08/05/19 12:24 - Laboratory Result Diagrams: 08/05/19 03:10 08/05/19 03:10 Laboratory results interpreted by me: 08/05/19 08/05/19 03:10 06:00 Potassium 3.1 L Carbon Dioxide 34 H Est GFR (MDRD) Non-Af 55 L Glucose 122 H Total Bilirubin 1.9 H Urine Urobilinogen 4.0 H 08/05/19 09:38 Her potassium is slightly below within normal limits at 3.1 seems like it is been low in the past. Her GFR is within normal limits otherwise her bilirubin indirect her total bilirubin is very mildly elevated at 1.5 she has been higher than this in the past. Even at 2.5 Discharge - Discharge Clinical Impression: Abdominal pain, Ileitis, Constipation, Pharyngitis Condition: Good Disposition: HOME, SELF-CARE Prescriptions: Acetaminophen [Mapap] 650 mg PO Q6HP PRN #36 tablet PRN Reason: Polyethylene Glycol 3350 [Miralax Powder 17 gm/Packet] 1 packet PO DAILY #1 pkg Referrals: EDE SOLITARIO MD [Primary Care Provider] - Follow up as needed
[2019-08-05 07:16] LABS: APPEARANCE,URINE CLEAR; BILIRUBIN,URINE NEGATIVE (NEGATIVE); COLOR,URINE YELLOW; GLUCOSE, URINE NEGATIVE (NEGATIVE); KETONES,URINE NEGATIVE (NEGATIVE); LEUKOCYTE ESTERASE,URINE NEGATIVE (NEGATIVE); NITRITE,URINE NEGATIVE (NEGATIVE); PROTEIN,URINE NEGATIVE (NEGATIVE); URINE SPECIFIC GRAVITY 1.011
--- NOTE | 2019-08-05 07:58 | RADIOLOGY REPORT (SQ) ---
EXAM DESCRIPTION: CT ABDOMEN PELVIS WITH IV CONTRAST COMPLETED DATE/TME: 08/05/2019 04:18 CLINICAL HISTORY: 74 years Female, right sided abd pain Comparison:Apr 16 2016 Technique: IV contrast. Coronal and sagittal reformat. This exam was performed according to our departmental dose-optimization program, which includes automated exposure control, adjustment of the mA and/or kV according to patient size and/or use of iterative reconstruction technique. [facility]: Dose Right [facility]: CareDose [facility]: Dose Right [facility]: Teradose 4D [facility]: [employer] LIMITATIONS: None Findings: Mild ileitis at the terminal ileum. Low attenuation diffuse bowel wall thickening including the distal ileum and pelvic small bowel suggestive of prior infectious/inflammatory insult. Atelectasis/scar. Small left fat only Bochdalek hernia. Stool retention. Minimal chronic irregularity of the L4-L5 endplates with vacuum disc suggestive of advanced degenerative disc disease. Differential diagnosis includes discitis. Small four L5 disc bulge with mild bilateral L4 foraminal stenoses. Bony demineralization. Atherosclerotic vascular disease. No ascites. No pneumoperitoneum. No evidence of appendicitis. Appendix not definitively discerned/appendectomy. No gross evidence of gallbladder inflammation, hepatobiliary obstruction, or portal vein defect. No bowel obstruction. No hydronephrosis or hydroureter. No renal/ureteral stone. No evidence of abdominal aortic aneurysm. Inferior thorax, liver, gallbladder, pancreas, spleen, adrenals, renal system, gastrointestinal tract, pelvic organs, lymphatics, vasculature, and musculoskeleton appear otherwise unremarkable. IMPRESSION: 1. Mild ileitis and mural fat replacement of the terminal ileum involves a chronic component. Differential etiologies include infectious, inflammatory, and neoplastic processes. 2. Mild chronic irregularity of the L4-L5 endplates with vacuum disc suggestive of advanced degenerative disc disease. Differential diagnosis includes discitis.
[2019-08-05] MEDS ORDERED: POTASSIUM CHLORIDE 10 MEQ TABLET.ER PO ONE (09:35)
[2019-08-05 12:30] VITALS: BP 123/60
== END 2019-08-05 12:24 | disposition home or self-care (01) ==
LOC: ER 02:52
DX: K52.9 Noninfective gastroenteritis and colitis, unspecified (principal); K59.00 Constipation, unspecified; J02.9 Acute pharyngitis, unspecified; R10.9 Unspecified abdominal pain; K21.9 Gastro-esophageal reflux disease without esophagitis; I10 Essential (primary) hypertension; Z88.0 Allergy status to penicillin; Z88.2 Allergy status to sulfonamides; Z90.710 Acquired absence of both cervix and uterus
CPT/HCPCS: 99284; 96374; 36415; 83690; 85025; 80053; 81001; 74177; J2405; A9270

== ENCOUNTER 2019-08-12 19:26 | Emergency (ER) | payer MEDICARE, OTHER ==
--- NOTE | 2019-08-12 20:54 | ER Document Report ---
ED Medical Screen (RME) - General Chief Complaint: Epigastric Pain Stated Complaint: REPORTS EPIGASTRIC PAIN Time Seen by Provider: 08/12/19 20:51 Primary Care Provider: EDE SOLITARIO MD [Primary Care Provider] - Follow up as needed Mode of Arrival: Ambulatory Information source: Patient Notes: 74-year-old female presents emergency department with complaints of epigastric pain. She reports she was evaluated here last week and told she had an ileus. She was told to follow-up with GI but reports she cannot get an appointment till September. Patient is concerned because she did not receive an antibiotic. Patient also reports she still having pain denies fever vomiting diarrhea. I have greeted and performed a rapid initial assessment of this patient. A com prehensive ED assessment and evaluation of the patient, analysis of test results and completion of the medical decision making process will be conducted by additional ED providers. Dictation of this chart was performed using voice recognition software; therefore, there may be some unintended grammatical errors. TRAVEL OUTSIDE OF THE [place] IN LAST 30 DAYS: No - Related Data Allergies/Adverse Reactions: atenolol Allergy (Verified 08/05/19 03:53) lisinopril Allergy (Verified 08/05/19 03:53) Penicillins Allergy (Verified 03/30/18 09:38) Sulfa (Sulfonamide Antibiotics) Allergy (Verified 03/30/18 09:38) Home Medications: hctz 25 mg daily. tylenol as needed for pain Past Medical History - Social History Chew tobacco use (# tins/day): No Frequency of alcohol use: None - Past Medical History Cardiac Medical History: Reports: Hx Hypertension Renal/ Medical History: Denies: Hx Peritoneal Dialysis GI Medical History: Reports: Hx Diverticulitis, Hx Gastroesophageal Reflux Disease Musculoskeltal Medical History: Reports Hx Arthritis Past Surgical History: Reports: Hx Appendectomy - "possibly", Hx Breast Surgery - bilat biopsy, Hx Hysterectomy, Hx Orthopedic Surgery - R knee, right ankle - Immunizations Immunizations up to date: Yes Hx Diphtheria, Pertussis, Tetanus Vaccination: Yes Physical Exam - Vital signs Vitals: Temp Pulse Resp BP Pulse Ox 97.7 F 73 16 166/69 H 98 08/12/19 19:57 08/12/19 19:57 08/12/19 19:57 08/12/19 19:57 08/12/19 19:57 Course - Vital Signs Vital signs: Temp Pulse Resp BP Pulse Ox 97.7 F 73 16 166/69 H 98 08/12/19 20:44 08/12/19 19:57 08/12/19 20:44 08/12/19 19:57 08/12/19 20:44 Doctor's Discharge - Discharge Referrals: EDE SOLITARIO MD [Primary Care Provider] - Follow up as needed
[2019-08-12 21:30] LABS: ABSOLUTE BASOPHILS # (AUTO) 0.1 10^3/uL (0.0-0.2); ABSOLUTE EOSINOPHILS # (AUTO) 0.1 10^3/uL (0.0-0.6); ABSOLUTE LYMPHOCYTES (AUTO) 1.8 10^3/uL (0.5-4.7); ABSOLUTE MONOCYTES (AUTO) 0.5 10^3/uL (0.1-1.4); ABSOLUTE NEUT (AUTO) 4.8 10^3/uL (1.7-8.2); BASOPHILS % (AUTO) 1.3 % (0-2); EOSINOPHILS % (AUTO) 1.8 % (0-6); HEMATOCRIT 40.6 % (36.0-47.0); HEMOGLOBIN 13.8 g/dL (12.0-15.5); LYMPHOCYTES % (AUTO) 24.4 % (13-45); MEAN CORPUSCULAR HEMOGLOBIN 31.7 pg (27.0-33.4); MEAN CORPUSCULAR HGB CONC 33.9 g/dL (32.0-36.0); MEAN CORPUSCULAR VOLUME 94 fl (80-97); MONOCYTES % (AUTO) 6.3 % (3-13); PLATELET COUNT 299 10^3/uL (150-450); RED BLOOD COUNT 4.33 10^6/uL (3.72-5.28); RED CELL DISTRIBUTION WIDTH 12.4 % (11.5-14.0); SEGMENTED NEUTROPHILS % (AUTO) 66.2 % (42-78); TOTAL CELLS COUNTED % (AUTO) 100 %; WHITE BLOOD COUNT 7.2 10^3/uL (4.0-10.5)
[2019-08-12 21:41] LABS: ALBUMIN 4.6 g/dL (3.5-5.0); ALKALINE PHOSPHATASE 110 U/L (38-126); ANION GAP 13 (5-19); ASPARTATE AMINO TRANSFERASE 24 U/L (14-36); BILIRUBIN,TOTAL 1.7 mg/dL (0.2-1.3); BLOOD UREA NITROGEN 17 mg/dL (7-20); CALCIUM 10.2 mg/dL (8.4-10.2); CARBON DIOXIDE 29 mmol/L (22-30); CHLORIDE 102 mmol/L (98-107); GLUCOSE 93 mg/dL (75-110); POTASSIUM 3.2 mmol/L (3.6-5.0); TOTAL PROTEIN 8.3 g/dL (6.3-8.2)
[2019-08-12 21:53] LABS: APPEARANCE,URINE SLIGHTLY-CLOUDY; BILIRUBIN,URINE NEGATIVE (NEGATIVE); COLOR,URINE YELLOW; GLUCOSE, URINE NEGATIVE (NEGATIVE); KETONES,URINE NEGATIVE (NEGATIVE); LEUKOCYTE ESTERASE,URINE NEGATIVE (NEGATIVE); NITRITE,URINE NEGATIVE (NEGATIVE); PROTEIN,URINE NEGATIVE (NEGATIVE); URINE SPECIFIC GRAVITY 1.021
[2019-08-13] MEDS ORDERED: MAG HYDROX/AL HYDROX/SIMETH SUSP 30 ML UDCUP PO ONE (01:34)
[2019-08-13] MEDS ORDERED: METOCLOPRAMIDE HCL ORAL SOLN 10 MG/10 ML UDCUP PO ONE (01:34)
[2019-08-13] MEDS ORDERED: LIDOCAINE 2% VISCOUS SOLN 20 ML UDCUP PO ONE (01:34)
[2019-08-13 01:41] VITALS: BP 159/91
--- NOTE | 2019-08-13 02:34 | ER Document Report ---
ED GI/ - General Stated Complaint: REPORTS EPIGASTRIC PAIN Time Seen by Provider: 08/12/19 20:51 Primary Care Provider: EDE SOLITARIO MD [ACTIVE STAFF] - Follow up as needed Mode of Arrival: Ambulatory Information source: Patient Notes: 74-year-old woman presenting to the emergency department with a history of abdominal pain. She has been seen in the emergency department previously and ap parently had work-up which included CT scan and labs. She is also been seen by her primary physician and GI. She states that her pain continues and she does not have any medication to take. She denies nausea and vomiting, pain does not change with eating, bowel movements have been regular, she denies shortness of breath, diaphoresis or symptoms suggestive of cardiac disease. TRAVEL OUTSIDE OF THE [place] IN LAST 30 DAYS: No - Related Data Allergies/Adverse Reactions: atenolol Allergy (Verified 08/05/19 03:53) lisinopril Allergy (Verified 08/05/19 03:53) Penicillins Allergy (Verified 03/30/18 09:38) Sulfa (Sulfonamide Antibiotics) Allergy (Verified 03/30/18 09:38) Home Medications: hctz 25 mg daily. tylenol as needed for pain Past Medical History - General Information source: Patient - Social History Smoking Status: Never Smoker Chew tobacco use (# tins/day): No Frequency of alcohol use: None Family History: Reviewed & Not Pertinent, DM, Hypertension Patient has suicidal ideation: No Patient has homicidal ideation: No - Past Medical History Cardiac Medical History: Reports: Hx Hypertension Renal/ Medical History: Denies: Hx Peritoneal Dialysis GI Medical History: Reports: Hx Diverticulitis, Hx Gastroesophageal Reflux Disease Musculoskeletal Medical History: Reports Hx Arthritis Past Surgical History: Reports: Hx Appendectomy - "possibly", Hx Breast Surgery - bilat biopsy, Hx Hysterectomy, Hx Orthopedic Surgery - R knee, right ankle - Immunizations Immunizations up to date: Yes Hx Diphtheria, Pertussis, Tetanus Vaccination: Yes Hx Pneumococcal Vaccination: 08/29/00 Review of Systems - Review of Systems Notes: Constitutional: Negative for fever. HENT: Negative for sore throat. Eyes: Negative for visual changes. Cardiovascular: Negative for chest pain. Respiratory: Negative for shortness of breath. Gastrointestinal: + Abdominal pain, negative vomiting or diarrhea. Genitourinary: Negative for dysuria. Musculoskeletal: Negative for back pain. Skin: Negative for rash. Neurological: Negative for headaches, weakness or numbness. 10 point ROS negative except as marked above and in HPI. Physical Exam - Vital signs Vitals: Temp Pulse Resp BP Pulse Ox 97.7 F 73 16 166/69 H 98 08/12/19 19:57 08/12/19 19:57 08/12/19 19:57 08/12/19 19:57 08/12/19 19:57 - Notes Notes: PHYSICAL EXAMINATION: Physical Exam: General: Pleasant but frustrated elderly female complaining of epigastric abdominal pain HEENT: NC/AT, pupils equal round and reactive to light, MM moist,nares clear, Neck: supple, no adenopathy, no masses. Lungs: clear, no wheezing, no rales no rhonchi CVS: Regular rate and rhythm no murmur gallop or rub Abdomen: Soft active tenderness in the epigastric and right of midline epigastric region, negative Zurita sign, no masses no guarding no rebound. Ext: No edema clubbing or cyanosis. Neuro: Alert and responsive, moving all 4 extremities on command, cranial nerves intact. Skin: Intact no open lesions, no rash PSYCH: Normal mood, normal affect. Course - Re-evaluation Re-evalutation: 08/13/2019 03:20 74-year-old woman with a complaint of epigastric pain, negative work-up prior ER visit, seen by her contract specialist I am not sure if there is a plan for endoscopy and follow-up. I have discussed with the patient need for upper endoscopy to exclude esophagitis gastritis or PUD. GI cocktail was given with some mild relief, I discussed with the patient using a antispasmodic continuing her usual meds and follow-up with the contract specialist or her primary care doctor. She seemed to be in agreement with this plan, however, at the time of discharge the patient question to the nurse regarding her pain and evaluation. The nurse presented to me and stated that the patient was complaining of chest pain. I returned to the exam room examined the patient and, she describes epigastric pain she does have some tenderness in her left chest wall and also left periscapular region. An EKG was performed and compared to a previous one which showed no significant changes. I have reassured the patient that her symptoms do not appear cardiac and repeat EKG was performed and Toradol 30 mg IM is given to reduce the musculoskeletal: Torso component of pain. After a period of observation the patient has excepted her discharge papers and left the department. - Vital Signs Vital signs: Temp Pulse Resp BP Pulse Ox 97.8 F 65 18 159/91 H 100 08/13/19 01:40 08/13/19 01:40 08/13/19 01:40 08/13/19 01:40 08/13/19 01:40 - Laboratory Result Diagrams: 08/12/19 21:07 08/12/19 21:07 Laboratory results interpreted by me: 08/12/19 08/12/19 21:07 21:07 Potassium 3.2 L Est GFR (MDRD) Non-Af 54 L Total Bilirubin 1.7 H Total Protein 8.3 H Urine Urobilinogen 2.0 H I have reviewed laboratory data and used this information for the treatment decisions regarding the patient. - EKG Interpretation by Me EKG shows normal: Sinus rhythm Rate: Normal Pitts/QRS: IVCD Voltage: Consistant with LVH When compared to previous EKG there are: No significant change Discharge - Discharge Clinical Impression: Epigastric abdominal pain Condition: Good Disposition: HOME, SELF-CARE Instructions: Abdominal Pain ([facility]), Antispasmodics ([facility]) Additional Instructions: Begin a probiotic, use dicyclomine as prescribed Follow-up with your doctor as needed. Prescriptions: Dicyclomine HCl [Bentyl 10 mg Capsule] 1 cap PO TID #20 cap Referrals: EDE SOLITARIO MD [ACTIVE STAFF] - Follow up as needed
[2019-08-13] MEDS ORDERED: KETOROLAC TROMETHAMINE INJ/PF 30 MG/1 ML SDV IM ONE (03:02)
--- NOTE | 2019-08-13 06:42 | EKG REPORT ---
SEVERITY:- ABNORMAL ECG - SINUS RHYTHM NONSPECIFIC INTRAVENTRICULAR CONDUCTION DELAY PROBABLE LEFT VENTRICULAR HYPERTROPHY : Confirmed by: Jayy Montana MD 13-Aug-2019 06:41:31
== END 2019-08-13 03:44 | disposition home or self-care (01) ==
LOC: ER 19:26
DX: R10.13 Epigastric pain (principal); I10 Essential (primary) hypertension; Z79.899 Other long term (current) drug therapy
CPT/HCPCS: 93005; 99284; 96372; 36415; 83690; 85025; 80053; 81001; 93010; J3490; A9270 ×2; J1885

== ENCOUNTER → 2019-11-14 | Outpatient (CLI) | payer MEDICARE, OTHER ==
--- NOTE | 2019-11-14 10:28 | WOMENS IMAGING REPORT ---
EXAM DESCRIPTION: BILAT SCREENING MAMMO W/CAD COMPLETED DATE/TIME: 11/14/2019 8:31 am REASON FOR STUDY: Z12.31 ENCOUNTER FOR SCREENING MAMMOGRAM FOR MALIGNANT NEOPLASM OF BREAST Z12.31 ENCNTR SCREEN MAMMOGRAM FOR MALIGNANT NEOPLASM OF YAKELIN COMPARISON: Multiple since 2008 EXAM PARAMETERS: Standard craniocaudal and mediolateral oblique views of each breast recorded using digital acquisition. Read with the assistance of CAD. .[facility] - [employer] Version 9.2 LIMITATIONS: None. FINDINGS: No suspicious masses, suspicious calcifications or architectural distortion. No areas of c oncern. IMPRESSION: NEGATIVE MAMMOGRAM. BIRADS 1 BREAST DENSITY: b. There are scattered areas of fibroglandular density. BIRAD: ASSESSMENT: 1 NEGATIVE RECOMMENDATION: ROUTINE SCREENING Please continue yearly bilateral screening mammography/tomosynthesis in October 2020. COMMENT: The patient has been notified of the results by letter per [place] requirements. Additional no tification policies are in place for contacting patient with suspicious or incomplete findings. Quality ID #[id number]: The [employer] recommends an annual screening mammogram for women aged 40 years or over. This facility utilizes a reminder system to ensure that all patients receive reminder letters, and/or direct phone calls for appointments. This includes reminders for routine scr eening mammograms, diagnostic mammograms, or other Breast Imaging Interventions when appropriate. Th is patient will be placed in the appropriate reminder system. TECHNICAL DOCUMENTATION: FINDING NUMBER: (1) ASSESSMENT: (1) JOB ID: [id number] 2010 [employer]- All Rights Reserved Reading location - IP/workstation name: [id number]
== END ==
LOC: WI 07:57
PROVIDERS: ATTEND Nurse Practitioner Family
DX: Z12.31 Encounter for screening mammogram for malignant neoplasm of breast (principal)
CPT/HCPCS: 77067

== ENCOUNTER 2020-01-14 23:40 | Emergency (ER) | payer MEDICARE, OTHER ==
[2020-01-15 00:54] LABS: ABSOLUTE EOSINOPHILS # (AUTO) 0.1 10^3/uL (0.0-0.6); ABSOLUTE LYMPHOCYTES (AUTO) 1.8 10^3/uL (0.5-4.7); ABSOLUTE MONOCYTES (AUTO) 0.5 10^3/uL (0.1-1.4); ABSOLUTE NEUT (AUTO) 4.9 10^3/uL (1.7-8.2); BASOPHILS % (AUTO) 0.6 % (0-2); EOSINOPHILS % (AUTO) 1.9 % (0-6); HEMATOCRIT 38.7 % (36.0-47.0); HEMOGLOBIN 12.9 g/dL (12.0-15.5); LYMPHOCYTES % (AUTO) 24.2 % (13-45); MEAN CORPUSCULAR HEMOGLOBIN 31.8 pg (27.0-33.4); MEAN CORPUSCULAR HGB CONC 33.3 g/dL (32.0-36.0); MEAN CORPUSCULAR VOLUME 96 fl (80-97); MONOCYTES % (AUTO) 6.7 % (3-13); PLATELET COUNT 282 10^3/uL (150-450); RED BLOOD COUNT 4.05 10^6/uL (3.72-5.28); RED CELL DISTRIBUTION WIDTH 13.4 % (11.5-14.0); SEGMENTED NEUTROPHILS % (AUTO) 66.6 % (42-78); TOTAL CELLS COUNTED % (AUTO) 100 %; WHITE BLOOD COUNT 7.4 10^3/uL (4.0-10.5)
[2020-01-15 01:18] LABS: ALBUMIN 4.2 g/dL (3.5-5.0); ALKALINE PHOSPHATASE 104 U/L (38-126); ANION GAP 5 (5-19); ASPARTATE AMINO TRANSFERASE 21 U/L (14-36); BILIRUBIN,TOTAL 1.7 mg/dL (0.2-1.3); BLOOD UREA NITROGEN 21 mg/dL (7-20); CALCIUM 9.7 mg/dL (8.4-10.2); CARBON DIOXIDE 33 mmol/L (22-30); CHLORIDE 102 mmol/L (98-107); CREATINE KINASE 90 U/L (30-135); GLUCOSE 104 mg/dL (75-110); POTASSIUM 3.4 mmol/L (3.6-5.0); TOTAL PROTEIN 7.4 g/dL (6.3-8.2)
[2020-01-15 01:30] LABS: CREATINE KINASE MB 0.65 ng/mL (<4.55)
[2020-01-15 01:31] LABS: TROPONIN I < 0.012 ng/mL
--- NOTE | 2020-01-15 04:01 | ER Document Report ---
ED General - General Chief Complaint: Edema Stated Complaint: LEG SWELLING Time Seen by Provider: 01/15/20 02:43 Primary Care Provider: JACKLYN DARNELL FNP [Primary Care Provider] - Follow up as needed Notes: 74-year-old female presents emergency department complaining of leg and ankle swelling since Tuesday. As well as increased pain. Patient states that the pain and swelling is bilateral but is worse in the right leg than the left leg. Patient states she has a history of venous insufficiency that was previously treated with radiofrequency ablation in her right leg a few years ago. States that the pain is very similar to right before she had to have the RFA previously. Patient does not know why she is having the swelling again. Denies any history of DVT or PE, does not take blood thinners, denies any chest pain or shortness of breath, denies taking any hormones, denies recent travel. TRAVEL OUTSIDE OF THE [place] IN LAST 30 DAYS: No - Related Data Allergies/Adverse Reactions: atenolol Allergy (Verified 01/15/20 00:08) lisinopril Allergy (Verified 01/15/20 00:08) Penicillins Allergy (Verified 01/15/20 00:08) Sulfa (Sulfonamide Antibiotics) Allergy (Verified 01/15/20 00:08) Past Medical History - General Information source: Patient - Social History Smoking Status: Never Smoker Frequency of alcohol use: None Drug Abuse: None Family History: DM, Hypertension Patient has homicidal ideation: No - Past Medical History Cardiac Medical History: Reports: Hx Hypertension Renal/ Medical History: Denies: Hx Peritoneal Dialysis GI Medical History: Reports: Hx Diverticulitis, Hx Gastroesophageal Reflux Disease Musculoskeletal Medical History: Reports Hx Arthritis Past Surgical History: Reports: Hx Appendectomy - "possibly", Hx Breast Surgery - bilat biopsy, Hx Hysterectomy, Hx Orthopedic Surgery - R knee, right ankle - Immunizations Immunizations up to date: Yes Hx Diphtheria, Pertussis, Tetanus Vaccination: Yes Hx Pneumococcal Vaccination: 08/29/00 Review of Systems - Review of Systems Constitutional: No symptoms reported Cardiovascular: See HPI, Edema Musculoskeletal: See HPI, Leg swelling, Ankle swelling -: Yes All other systems reviewed and negative Physical Exam - Vital signs Vitals: Temp Pulse Resp BP Pulse Ox 98.7 F 76 20 158/68 H 96 01/15/20 00:05 01/15/20 00:05 01/15/20 00:05 01/15/20 00:05 01/15/20 00:05 Interpretation: Hypertensive - Notes Notes: GENERAL: Alert, interacts well. No acute distress. HEAD: Normocephalic, atraumatic EYES: Pupils equal, round and reactive to light, extraocular movements intact. ENT: Oral mucosa moist, tongue midline. NECK: Full range of motion, supple, trachea midline. LUNGS: Clear to auscultation bilaterally, no wheezes, rales or rhonchi, no respiratory distress. HEART: Regular rate and rhythm, no murmurs, gallops, rubs. ABDOMEN: Soft, nontender, nondistended, bowel sounds present in all 4 quadrants. EXTREMITIES: Moves all 4 extremities spontaneously, 2+ pitting edema to just below the level of the knees bilaterally, radial and dorsalis pedis pulses 1/4 bilaterally. No cyanosis. NEUROLOGICAL: Alert and oriented x3, normal speech. PSYCH: Normal mood, normal affect. SKIN: Warm, Dry, skin is significantly darker on the lower half of the lower leg is consistent with changes of venous insufficiency, no erythema, no blisters or lesions. Course - Re-evaluation Re-evalutation: 01/15/20 04:01 CBC unremarkable, CMP shows slight low potassium at 3.4, slightly elevated BUN at 21, cardiac enzymes negative. 01/15/20 04:27 Repeat troponin is also negative, proBNP is relatively low at 183. This is not consistent with congestive heart failure causing her swelling. Patient swelling is quite symmetric, likely coming from a chronic venous insufficiency however patient will have an order written for venous duplex ultrasound to be performed during normal business hours today. - Vital Signs Vital signs: Temp Pulse Resp BP Pulse Ox 98.7 F 76 14 140/62 H 100 01/15/20 00:09 01/15/20 00:05 01/15/20 04:01 01/15/20 04:01 01/15/20 04:01 - Laboratory Result Diagrams: 01/15/20 00:32 01/15/20 00:32 Laboratory results interpreted by me: 01/15/20 01/15/20 00:32 03:25 Potassium 3.4 L Carbon Dioxide 33 H BUN 21 H Est GFR (MDRD) Non-Af 54 L Total Bilirubin 1.7 H NT-Pro-B Natriuret Pep 183 H - EKG Interpretation by Me Additional EKG results interpreted by me: 01/15/20 04:30 EKG shows sinus rhythm at a rate of 78, first-degree AV block with a CT interval of 208, normal axis, no ST segment elevations or depressions, no T wave inversions per my interpretation. Discharge - Discharge Clinical Impression: Peripheral edema Condition: Stable Disposition: HOME, SELF-CARE Additional Instructions: Today there was no sign of congestive heart failure on your bloodwork or lung exam. The swelling in your legs may be coming from your venous insufficiency, but we need to rule out a blood clot (DVT) in your legs first, before we refer you back to Dr. Braden for further work-up and treatment of your venous insufficiency. I have written an order for an ultrasound of your legs to rule out a blood clot. Please call the hospital to set-up your appointment time, do not just show up at radiology without calling. Please return for chest pain, trouble breathing, difficulty walking, or any new or concerning symptoms. Forms: Follow-Up Outpatient Testing Referrals: JACKLYN DARNELL FNP [Primary Care Provider] - Follow up as needed
[2020-01-15 04:08] VITALS: BP 140/62
[2020-01-15 04:17] LABS: NT PRO BNP 183 pg/mL (<125)
[2020-01-15 04:26] LABS: TROPONIN I < 0.012 ng/mL
--- NOTE | 2020-01-15 08:12 | EKG REPORT ---
SEVERITY:- ABNORMAL ECG - SINUS RHYTHM BIATRIAL ABNORMALITIES : Confirmed by: Zarina Cadet MD 15-Jan-2020 08:12:32
== END 2020-01-15 05:00 | disposition home or self-care (01) ==
LOC: ER 23:40
DX: R60.9 Edema, unspecified (principal); I10 Essential (primary) hypertension; Z88.0 Allergy status to penicillin; Z88.2 Allergy status to sulfonamides; Z90.710 Acquired absence of both cervix and uterus
CPT/HCPCS: 36415; 80053; 82550; 82553; 83880; 84484; 85025; 93005; 93010; 99285

== ENCOUNTER → 2020-01-16 | Outpatient (CLI) | payer MEDICARE, OTHER ==
--- NOTE | 2020-01-16 12:42 | RADIOLOGY REPORT (SQ) ---
EXAM DESCRIPTION: VENOUS UNILATERAL LOWER IMAGES COMPLETED DATE/TIME: 01/16/2020 12:23 pm REASON FOR STUDY: RLE EDEMA R60.9 EDEMA, UNSPECIFIED COMPARISON: 03/23/2014 TECHNIQUE: Dynamic and static cardenas scale and color images acquired of the right leg venous system. S elected spectral images acquired with additional compression and augmentation maneuvers. The contrala teral common femoral vein and saphenofemoral junction were also imaged. Images stored on PACS. LIMITATIONS: None. FINDINGS: COMMON FEMORAL: Normal phasicity, compression and augmentation. No visualized echogenic ma terial on cardenas scale. No defects on color images. FEMORAL: Normal compression and augmentation. No visualized echogenic material on cardenas scale. No defe cts on color images. POPLITEAL: Normal compression, augmentation. No visualized echogenic material on cardenas scale. No defec ts on color images. CALF VESSELS: Normal compression, augmentation. No visualized echogenic material on cardenas scale. No de fects on color images. GSV and SSV: Normal compression, augmentation. No visualized echogenic material on cardenas scale. No def ects on color images. ANY DEEP VENOUS INSUFFICIENCY: Not evaluated. ANY EVIDENCE OF POPLITEAL CYST: No. OTHER: No other significant finding. CONTRALATERAL COMMON FEMORAL VEIN AND SAPHENOFEMORAL JUNCTION: Normal phasicity, compression and augmentation. No visualized echogenic material on cardenas scale. No de fects on color images. IMPRESSION: NO EVIDENCE DVT OR SVT IN THE RIGHT LEG. TECHNICAL DOCUMENTATION: JOB ID: [id number] [employer]- All Rights Reserved Reading location - IP/workstation name: [email or web address]
== END ==
LOC: SP 10:54
PROVIDERS: ATTEND Emergency Medicine
DX: R22.42 Localized swelling, mass and lump, left lower limb (principal)
CPT/HCPCS: 93971

== ENCOUNTER 2020-04-12 10:14 | Emergency (ER) | payer MEDICARE, OTHER ==
--- NOTE | 2020-04-12 11:55 | ER Document Report ---
ED Medical Screen (RME) - General Chief Complaint: Foreign Body in Ear Stated Complaint: EAR PAIN Time Seen by Provider: 04/12/20 11:50 Primary Care Provider: CHRISTIAN LIRA DO [Primary Care Provider] - Follow up as needed Mode of Arrival: Ambulatory Information source: Patient Notes: 74-year-old female presented to ED for a insect in the right ear. I have placed alcohol in the ear it about is now . She will need ear irrigation to remove the wax and the dog. Patient is alert oriented respirations regular nonlabored speaking in full sentences. I have greeted and performed a rapid initial assessment of this patient. A comprehensive ED assessment and evaluation of the patient, analysis of test results and completion of medical decision making process will be conducted by an additional ED providers. TRAVEL OUTSIDE OF THE [place] IN LAST 30 DAYS: No - Related Data Allergies/Adverse Reactions: atenolol Allergy (Verified 01/15/20 00:08) lisinopril Allergy (Verified 01/15/20 00:08) Penicillins Allergy (Verified 01/15/20 00:08) Sulfa (Sulfonamide Antibiotics) Allergy (Verified 01/15/20 00:08) Past Medical History - Past Medical History Cardiac Medical History: Reports: Hx Hypertension Renal/ Medical History: Denies: Hx Peritoneal Dialysis GI Medical History: Reports: Hx Diverticulitis, Hx Gastroesophageal Reflux Disease Musculoskeltal Medical History: Reports Hx Arthritis Past Surgical History: Reports: Hx Appendectomy - "possibly", Hx Breast Surgery - bilat biopsy, Hx Hysterectomy, Hx Orthopedic Surgery - R knee, right ankle - Immunizations Immunizations up to date: Yes Hx Diphtheria, Pertussis, Tetanus Vaccination: Yes Physical Exam - Vital signs Vitals: Temp Pulse Resp BP Pulse Ox 98.1 F 86 16 141/69 H 98 04/12/20 10:25 04/12/20 10:25 04/12/20 10:25 04/12/20 10:25 04/12/20 10:25 Course - Vital Signs Vital signs: Temp Pulse Resp BP Pulse Ox 98.1 F 86 16 141/69 H 98 04/12/20 10:25 04/12/20 10:25 04/12/20 10:25 04/12/20 10:25 04/12/20 10:25 Doctor's Discharge - Discharge Referrals: CHRISTIAN LIRA DO [Primary Care Provider] - Follow up as needed
--- NOTE | 2020-04-12 12:36 | ER Document Report ---
HPI - HPI Patient complains to provider of: Insect in ear Time Seen by Provider: 04/12/20 11:50 Onset: This morning Pain Level: 2 Context: Patient complains of insect in her right ear. Patient states she felt it moving in her ear. Associated Symptoms: Earache Exacerbated by: Denies Relieved by: Denies Similar symptoms previously: No Recently seen / treated by doctor: No - ROS ROS below otherwise negative: Yes Systems Reviewed and Negative: Yes All other systems reviewed and negative - CONSTITUTIONAL Constitutional: DENIES: Fever, Chills - EENT EENT: REPORTS: Ear Pain - FB in ear - GASTROINTESTINAL Gastrointestinal: DENIES: Nausea - DERM Skin Color: Normal Skin Problems: None Past Medical History - General Information source: Patient - Social History Smoking Status: Never Smoker Chew tobacco use (# tins/day): No Frequency of alcohol use: None Drug Abuse: None Occupation: none Family History: DM, Hypertension - Past Medical History Cardiac Medical History: Reports: Hx Hypertension Renal/ Medical History: Denies: Hx Peritoneal Dialysis GI Medical History: Reports: Hx Diverticulitis, Hx Gastroesophageal Reflux Dis ease Musculoskeletal Medical History: Reports Hx Arthritis Past Surgical History: Reports: Hx Appendectomy - "possibly", Hx Breast Surgery - bilat biopsy, Hx Hysterectomy, Hx Orthopedic Surgery - R knee, right ankle - Immunizations Immunizations up to date: Yes Hx Diphtheria, Pertussis, Tetanus Vaccination: Yes Hx Pneumococcal Vaccination: 08/29/00 Vertical Provider Document - CONSTITUTIONAL Agree With Documented VS: Yes Exam Limitations: No Limitations General Appearance: WD/WN, No Apparent Distress - INFECTION CONTROL TRAVEL OUTSIDE OF THE [place] IN LAST 30 DAYS: No - HEENT HEENT: Atraumatic, Normocephalic Notes: Visible foreign body to right ear canal - NECK Neck: Normal Inspection, Supple - RESPIRATORY Respiratory: Breath Sounds Normal, No Respiratory Distress, Chest Non-Tender - CARDIOVASCULAR Cardiovascular: Regular Rate, Regular Rhythm - BACK Back: Normal Inspection - MUSCULOSKELETAL/EXTREMETIES Musculoskeletal/Extremeties: MAEW - NEURO Level of Consciousness: Awake, Alert, Appropriate Motor/Sensory: No Motor Deficit - DERM Integumentary: Warm, Dry, No Rash Course - Re-evaluation Re-evalutation: 04/12/20 12:35 Foreign body irrigated with some warm tap water and removed with forceps without difficulty, patient tolerated procedure well. Normal right TM and right external auditory canal. - Vital Signs Vital signs: Temp Pulse Resp BP Pulse Ox 98.1 F 86 16 141/69 H 98 04/12/20 10:25 04/12/20 10:25 04/12/20 10:25 04/12/20 10:25 04/12/20 10:25 Discharge - Discharge Clinical Impression: Foreign body removed from right ear Condition: Stable Disposition: HOME, SELF-CARE Instructions: Foreign Object in the Ear ([facility]) Additional Instructions: Return immediately for any new or worsening symptoms Followup with your primary care provider, call tomorrow to make a followup appointment Referrals: CHRISTIAN LIRA DO [ACTIVE PROVISIONAL STAFF] - Follow up as needed
[2020-04-12 12:48] VITALS: BP 153/65
== END 2020-04-12 12:49 | disposition home or self-care (01) ==
LOC: ER 10:14
DX: T16.1XXA Foreign body in right ear, initial encounter (principal); X58.XXXA Exposure to other specified factors, initial encounter; I10 Essential (primary) hypertension
CPT/HCPCS: 99282

== ENCOUNTER 2020-05-12 09:34 | Emergency (ER) | payer MEDICARE ==
--- NOTE | 2020-05-12 11:03 | RADIOLOGY REPORT (SQ) ---
EXAM DESCRIPTION: CHEST SINGLE VIEW IMAGES COMPLETED DATE/TIME: 05/12/2020 10:51 am REASON FOR STUDY: chest congestion COMPARISON: 04/16/2016 EXAM PARAMETERS: NUMBER OF VIEWS: One view. TECHNIQUE: Single frontal radiographic view of the chest acquired. RADIATION DOSE: NA LIMITATIONS: None. FINDINGS: LUNGS AND PLEURA: No opacities, masses or pneumothorax. No pleural effusion. MEDIASTINUM AND HILAR STRUCTURES: No masses. Contour normal. HEART AND VASCULAR STRUCTURES: Normal heart size. Vascular calcifications. BONES: No acute findings. HARDWARE: None in the chest. OTHER: No other significant finding. IMPRESSION: No focal airspace disease or other evidence of acute intrathoracic process. TECHNICAL DOCUMENTATION: JOB ID: [id number] 2010 [employer]- All Rights Reserved Reading location - IP/workstation name: [email or web address]
--- NOTE | 2020-05-12 12:14 | ER Document Report ---
ED General - General Chief Complaint: Chest Congestion Stated Complaint: CONGESTION/CHILLS Notes: 75-year-old female with past medical history of anemia, lymphedema, con stipation, hypertension presenting today with shortness of breath and chills for 1 month. She denies any fever, cough, abdominal pain, chest pain. She has occasional pain with urination. Has had no recent travel. No known exposure to COVID. Shortness of breath occurs all the time. Is not exacerbated by movement. Did not take her blood pressure medication this morning. Typically takes it as prescribed. Has a history of poor circulation in her lower extremities. She has a follow-up with a vascular surgeon at the end of this month. Is not on any blood thinners. Has not taken anything to help her symptoms as she is uncertain as to what to take. Denies any straining to use the bathroom or blood in her stools. No additional symptoms reported. hx of lymphedema. left leg is more swollen than usual. Doesn't take any medications to remove fluids. Also notes chronic bilateral leg swelling, says left is worse than right when they are usually swollen the same size. TRAVEL OUTSIDE OF THE [place] IN LAST 30 DAYS: No - Related Data Allergies/Adverse Reactions: atenolol Allergy (Verified 01/15/20 00:08) lisinopril Allergy (Verified 01/15/20 00:08) Penicillins Allergy (Verified 01/15/20 00:08) Sulfa (Sulfonamide Antibiotics) Allergy (Verified 01/15/20 00:08) Past Medical History - Social History Smoking Status: Unknown if Ever Smoked Frequency of alcohol use: None Drug Abuse: None Family History: DM, Hypertension - Past Medical History Cardiac Medical History: Reports: Hx Hypertension Renal/ Medical History: Denies: Hx Peritoneal Dialysis GI Medical History: Reports: Hx Diverticulitis, Hx Gastroesophageal Reflux Disease Musculoskeletal Medical History: Reports Hx Arthritis Past Surgical History: Reports: Hx Appendectomy - "possibly", Hx Breast Surgery - bilat biopsy, Hx Hysterectomy, Hx Orthopedic Surgery - R knee, right ankle - Immunizations Immunizations up to date: Yes Hx Diphtheria, Pertussis, Tetanus Vaccination: Yes Hx Pneumococcal Vaccination: 08/29/00 Review of Systems - Review of Systems Constitutional: See HPI EENT: No symptoms reported Cardiovascular: No symptoms reported Respiratory: See HPI Gastrointestinal: No symptoms reported Genitourinary: See HPI Female Genitourinary: No symptoms reported Musculoskeletal: See HPI Skin: No symptoms reported Hematologic/Lymphatic: No symptoms reported Neurological/Psychological: No symptoms reported Physical Exam - Vital signs Vitals: Temp Pulse Resp BP Pulse Ox 98.3 F 77 20 150/69 H 96 05/12/20 10:27 05/12/20 10:27 05/12/20 10:27 05/12/20 10:27 05/12/20 10:27 Interpretation: Hypertensive. No: Tachycardic, Tachypneic, Febrile - Notes Notes: Adult General: GENERAL: Alert, interacts well. No acute distress HEAD: Normocephalic, atraumatic EYES: Pupils equal, round and reactive to light. Extraocular movements intact. ENT: Oral mucosa moist, tongue midline. Oropharynx unremarkable. Airway patent. Nares patent, sinuses nontender, ear canals unremarkable, TMs intact. No Trismus. NECK: Full range of motion. Supple. Trachea midline. No lymphadenopathy. LUNGS: Clear to auscultation bilaterally, no wheezes, rales, or rhonchi. No respiratory distress. Nontender chest wall. HEART: Regular rate and rhythm. No murmurs, rubs or gallops. ABDOMEN: Soft, nontender. Nondistended. (-) [place] sign. Bowel sounds present in all 4 quadrants. No rebound, guarding or masses. GENITOURINARY: Deferred EXTREMITIES: Moves all 4 extremities spontaneously. 2+ pitting edema bilateral lower legs, normal radial and dorsal pedis pulses bilaterally. No cyanosis. BACK: No cervical, thoracic, lumbar midline tenderness. No saddle anesthesia, normal distal neurovascular exam. Moves all extremities with full range of motion. NEUROLOGICAL: Alert and oriented x3. Normal speech. Cranial nerves II through XII grossly intact. Strength 5/ 5 in all extremities. PSYCH: Normal affect, normal mood. SKIN: Warm, dry, normal turgor. No rashes or lesions noted. Course - Re-evaluation Re-evalutation: 05/12/20 13:59 Patient did not take tylenol that was ordered as she can only take coated tylenol as it does not upset her stomach. After further discussion she informs me her left leg is more swollen than usual. I will image for DVT/SVT and BNP ordered. Her additional labs at this time are unremarkable. 05/12/20 14:[address] Goss, will also CTA patient as she is short of breath. Pending troponin and bnp 05/12/20 17:05 I have called again about patient CTA. She has still not been taken for CTA. 05/15/20 16:04 05/15/20 16:09 Patients labs are unremarkable. She is not anemic, BNP is 97, has had 2 negative troponins, urine is unremarkable. EKG shows 1st degree av block. CXR is negative for focal airspace disease, doppler is negative for dvt/svt, and CTA shows no PE, minimal atelectasis and bochdalek hernia. These findings were discussed with the patient. I discussed with patient that her workup has overall been unremarkable and she is not tachycardic, her SPO2 is >98% on RA, she is afebrile. Denies any abdominal pain. Is not in respiratory distress. These are all reassuring. I am comfortable disch arging the patient. I did discuss with patient that she is a PUI for COVID. Recommend she follows up with her primary care for her symptoms as well as her edema. Patient acknowledges and verbalizes understanding of instructions and plan. All questions answered. - Vital Signs Vital signs: Temp Pulse Resp BP Pulse Ox 98.2 F 69 14 156/71 H 98 05/12/20 18:41 05/12/20 18:41 05/12/20 18:41 05/12/20 18:41 05/12/20 18:41 - Laboratory Result Diagrams: 05/12/20 12:30 05/12/20 12:30 Laboratory results interpreted by me: 05/12/20 05/12/20 12:30 12:30 Carbon Dioxide 31 H Total Bilirubin 2.1 H Alkaline Phosphatase 131 H Urine Urobilinogen 4.0 H - EKG Interpretation by Me Additional EKG results interpreted by me: 05/15/20 16:10 EKG shows first degree av heart block, SR of 71, UT interval is 220, qtc 448, no st segment elevations or depressions. Her previous ekg shows 1st degree av block. Discharge - Discharge Clinical Impression: Person under investigation for COVID-19, Chills (without fever), Bochdalek hernia Edema Qualifiers: Edema type: unspecified Qualified Code(s): R60.9 - Edema, unspecified Condition: Stable Disposition: HOME, SELF-CARE Instructions: COVID-19 Guidance for Persons Under Investigation Additional Instructions: Your work-up has been unremarkable. Please take Tylenol for your chills. You have been tested for COVID. Please follow recommendations for quarantine until you hear from the health department. I also recommend you follow-up with your primary care provider. Please return to the emergency department for any worsening symptoms or development of new symptoms. Forms: Elevated Blood Pressure
[2020-05-12] MEDS ORDERED: ACETAMINOPHEN 325 MG TABLET PO ONE (12:16)
[2020-05-12 13:14] LABS: ABSOLUTE BASOPHILS # (AUTO) 0.1 10^3/uL (0.0-0.2); ABSOLUTE EOSINOPHILS # (AUTO) 0.1 10^3/uL (0.0-0.6); ABSOLUTE LYMPHOCYTES (AUTO) 1.3 10^3/uL (0.5-4.7); ABSOLUTE MONOCYTES (AUTO) 0.4 10^3/uL (0.1-1.4); BASOPHILS % (AUTO) 0.7 % (0-2); HEMATOCRIT 40.1 % (36.0-47.0); HEMOGLOBIN 13.6 g/dL (12.0-15.5); LYMPHOCYTES % (AUTO) 16.4 % (13-45); MEAN CORPUSCULAR HEMOGLOBIN 32.2 pg (27.0-33.4); MEAN CORPUSCULAR HGB CONC 33.8 g/dL (32.0-36.0); MEAN CORPUSCULAR VOLUME 95 fl (80-97); MONOCYTES % (AUTO) 5.6 % (3-13); PLATELET COUNT 289 10^3/uL (150-450); RED BLOOD COUNT 4.22 10^6/uL (3.72-5.28); SEGMENTED NEUTROPHILS % (AUTO) 76.3 % (42-78); TOTAL CELLS COUNTED % (AUTO) 100 %; WHITE BLOOD COUNT 7.9 10^3/uL (4.0-10.5)
[2020-05-12 13:16] LABS: APPEARANCE,URINE CLEAR; BILIRUBIN,URINE NEGATIVE (NEGATIVE); COLOR,URINE YELLOW; GLUCOSE, URINE NEGATIVE (NEGATIVE); KETONES,URINE NEGATIVE (NEGATIVE); LEUKOCYTE ESTERASE,URINE NEGATIVE (NEGATIVE); NITRITE,URINE NEGATIVE (NEGATIVE); PROTEIN,URINE NEGATIVE (NEGATIVE); URINE SPECIFIC GRAVITY 1.024
[2020-05-12 13:36] LABS: ALBUMIN 4.5 g/dL (3.5-5.0); ALKALINE PHOSPHATASE 131 U/L (38-126); ANION GAP 6 (5-19); ASPARTATE AMINO TRANSFERASE 26 U/L (14-36); BILIRUBIN,DIRECT 0.2 mg/dL (0.0-0.4); BILIRUBIN,TOTAL 2.1 mg/dL (0.2-1.3); BLOOD UREA NITROGEN 19 mg/dL (7-20); CALCIUM 10.2 mg/dL (8.4-10.2); CARBON DIOXIDE 31 mmol/L (22-30); CHLORIDE 105 mmol/L (98-107); GLUCOSE 98 mg/dL (75-110); POTASSIUM 3.6 mmol/L (3.6-5.0); TOTAL PROTEIN 7.9 g/dL (6.3-8.2)
--- NOTE | 2020-05-12 16:12 | RADIOLOGY REPORT (SQ) ---
EXAM DESCRIPTION: VENOUS UNILATERAL LOWER IMAGES COMPLETED DATE/TIME: 05/12/2020 3:57 pm REASON FOR STUDY: worsening left leg swelling COMPARISON: 01/16/2020 TECHNIQUE: Dynamic and static cardenas scale and color images acquired of the left leg venous system. Se lected spectral images acquired with additional compression and augmentation maneuvers. The contralat eral common femoral vein and saphenofemoral junction were also imaged. Images stored on PACS. LIMITATIONS: None. FINDINGS: COMMON FEMORAL: Normal phasicity, compression and augmentation. No visualized echogenic ma terial on cardenas scale. No defects on color images. FEMORAL: Normal compression and augmentation. No visualized echogenic material on cardenas scale. No defe cts on color images. POPLITEAL: Normal compression, augmentation. No visualized echogenic material on cardenas scale. No defec ts on color images. CALF VESSELS: Normal compression, augmentation. No visualized echogenic material on cardenas scale. No de fects on color images. GSV and SSV: Normal compression, augmentation. No visualized echogenic material on cardenas scale. No def ects on color images. ANY DEEP VENOUS INSUFFICIENCY: Not evaluated. ANY EVIDENCE OF POPLITEAL CYST: No. OTHER: No other significant finding. CONTRALATERAL COMMON FEMORAL VEIN AND SAPHENOFEMORAL JUNCTION: Normal phasicity, compression and augmentation. No visualized echogenic material on cardenas scale. No de fects on color images. IMPRESSION: NO EVIDENCE OF DVT OR SVT IN THE LEFT LEG. TECHNICAL DOCUMENTATION: JOB ID: [id number] 2010 [employer]- All Rights Reserved Reading location - IP/workstation name: [email or web address]
--- NOTE | 2020-05-12 17:55 | RADIOLOGY REPORT (SQ) ---
EXAM DESCRIPTION: CTA CHEST IMAGES COMPLETED DATE/TIME: 05/12/2020 4:24 pm REASON FOR STUDY: shortness of breath COMPARISON: Chest radiograph same date. TECHNIQUE: CT scan of the chest performed using helical scanning technique with dynamic intravenous contrast injection. Images reviewed with lung, soft tissue and bone windows. Reconstructed coronal and sagittal MPR images reviewed. Additional 3 dimensional post-processing performed to develop Maximal Intensity Projection images (MD P). All images stored on PACS. All CT scanners at this facility use dose modulation, iterative reconstruction, and/or weight based d osing when appropriate to reduce radiation dose to as low as reasonably achievable (ALARA). [facility]: Dose Right [facility]: CareDose [facility]: Dose Right [facility]: Teradose 4D [facility]: Oilex CONTRAST TYPE AND DOSE: contrast/concentration: Isovue 350.00 mmol/ml; Total Contrast Delivered: 74. 0 ml; Total Saline Delivered: 69.0 ml Contrast bolus optimized for the pulmonary arteries. Not diagnostic for the aorta. RENAL FUNCTION: GFR > 60. RADIATION DOSE: CT Rad equipment meets quality standard of care and radiation dose reduction techniq ues were employed. CTDIvol: 6.6 - 19.2 mGy. DLP: 617 mGy-cm. . LIMITATIONS: None. FINDINGS: LUNGS AND PLEURA: Trachea has normal caliber and appearance. No bronchial wall thickening or bronchiectasis. Small fat containing left popped o'clock hernia. Minimal dependent atelectasis at the left lung base. No focal consolidation or pleural effusion. No pneumothorax. AORTA AND GREAT VESSELS: No aneurysm. Contrast bolus not optimized for the aorta. HEART: Moderate cardiomegaly. No pericardial effusion. No significant coronary artery calcifications . PULMONARY ARTERIES: No emboli visualized in the main pulmonary arteries or the segmental branches. HILAR AND MEDIASTINAL STRUCTURES: No identified masses or abnormal nodes. HARDWARE: None in the chest. UPPER ABDOMEN: No significant findings. Limited exam. THYROID AND OTHER SOFT TISSUES: No masses. No adenopathy. BONES: Spondylosis and degenerative disc disease. No suspicious bone lesions. 3D MIPS: Confirm above findings. OTHER: No other significant finding. IMPRESSION: 1. No pulmonary embolism. 2. Minimal dependent atelectasis at the left lung base. 3. Small fat containing left Bochdalek hernia. COMMENT: Quality ID # [id number]: Final reports with documentation of one or more dose reduction techniques (e.g., Automated exposure control, adjustment of the mA and/or kV according to patient size, use of iterative reconstruction technique) TECHNICAL DOCUMENTATION: JOB ID: [id number] 2010 [employer]- All Rights Reserved Reading location - IP/workstation name: [email or web address]
[2020-05-12 18:46] VITALS: BP 156/71
--- NOTE | 2020-05-14 19:08 | EKG REPORT ---
SEVERITY:- ABNORMAL ECG - SINUS RHYTHM FIRST DEGREE AV BLOCK : Confirmed by: Max Houser 14-May-2020 19:07:58
== END 2020-05-12 18:47 | disposition home or self-care (01) ==
LOC: ER 09:34
DX: R68.83 Chills (without fever) (principal); J98.11 Atelectasis; R60.0 Localized edema; R06.02 Shortness of breath; I44.0 Atrioventricular block, first degree; K44.9 Diaphragmatic hernia without obstruction or gangrene; I10 Essential (primary) hypertension; Z20.828 Contact with and (suspected) exposure to other viral communicable diseases; R30.9 Painful micturition, unspecified; Z79.899 Other long term (current) drug therapy; Z88.8 Allergy status to other drugs, medicaments and biological substances; Z88.0 Allergy status to penicillin; Z88.2 Allergy status to sulfonamides
CPT/HCPCS: 93005; 99285; 36415; 85025; 80053; 81001; 84484; 83880; 93971; 71045; 71275; 93010; U0003; C9803; 87635